=== PATIENT | female | born 1960 | race Caucasian/White ===

== ENCOUNTER 2017-02-19 19:46 | Emergency (ER) | payer MEDICARE, MEDICAID ==
[2017-02-19] MEDS ORDERED: Albuterol/Ipratropium NEB.SOL* Albuterol 2.5 MG/Ipratropium 0.5 MG 3 ML ONE (20:21)
[2017-02-19] MEDS ORDERED: methylPREDNISolone 125 MG* 2 ML VIAL ONE (20:22)
[2017-02-19] MEDS ORDERED: LORazepam INJ* 2 MG/ML 1 ML VIAL ONE (20:23)
[2017-02-19] MEDS ORDERED: Albuterol/Ipratropium NEB.SOL* Albuterol 2.5 MG/Ipratropium 0.5 MG 3 ML INH ONE (20:25)
[2017-02-19] MEDS ORDERED: LORazepam INJ* 2 MG/ML 1 ML VIAL IV PUSH ONE (20:25)
[2017-02-19] MEDS ORDERED: methylPREDNISolone 125 MG* 2 ML VIAL IV ONE (20:25)
[2017-02-19] MEDS ORDERED: NS 0.9% 1000 ML* 1,000 ML IV ONE (20:38)
[2017-02-19 20:43] LABS: Hematocrit 41 % (35-47); Hemoglobin 13.6 g/dl (12.0-16.0); Mean Corpuscular HGB Conc 33 g/dl (31-36); Mean Corpuscular Hemoglobin 28 pg (27-31); Mean Corpuscular Volume 84 fL (80-97); Mean Platelet Volume 9 um3 (7.4-10.4); Red Cell Distribution Width 15 % (10.5-15)
[2017-02-19 20:54] LABS: Albumin 4.3 g/dL (3.2-5.2); BUN/Creatinine Ratio 22.2 (8-20); Calcium 9.6 mg/dL (8.6-10.3); EGFR African American 83.3 (>60); EGFR Non-African American 64.8 (>60); Globulin 2.6 g/dL (2-4); Potassium 3.9 mmol/L (3.5-5.0); Total Bilirubin 0.5 mg/dL (0.2-1.0); Total Protein 6.9 g/dL (6.4-8.9)
--- NOTE | 2017-02-19 21:28 | RAD ---
INDICATION: Shortness of breath COMPARISON: Most recent comparison chest x-ray dated September 13, 2016 TECHNIQUE: Single AP portable view of the chest was obtained. FINDINGS: Image quality is compromised due to the relative inferiority of a portable chest x-ray. The heart and mediastinum exhibit normal size and contour. The lungs are grossly clear. There is no evidence of a large pleural effusion. Visualized bones are normal for the patient's age. IMPRESSION: No radiographic evidence for acute cardiopulmonary abnormality on this portable chest x-ray.
[2017-02-19] MEDS ORDERED: DOXYcycline CAP(*) 100 MG PO ONE (23:33)
--- NOTE | 2017-02-19 23:39 | ED ---
Judy Hodges Alok, scribed for Tish Frankel MD on 02/19/17 at 2041 . Respiratory - HPI Summary HPI Summary: 57F presents to the ED with difficulty breathing and dry heaving. Pt was reportedly smoked crack-cocaine earlier today between 1400 and 1700 and has not been able to expel her phlegm since. Pt has been dry heaving infrequently for months but not with this severity. Pt also notes back pain. Pt denies CP. Pt denes dysphagia. PMHx includes COPD and pt is on 2L O2 at home. Pt denies h/o stoke or STEMI. - History of Current Complaint Chief Complaint: EDShortnessOfBreath Stated Complaint: DIFF. BREATHING/NARCOTICS USE Time Seen by Provider: 02/19/17 19:56 Hx Obtained From: Patient Onset/Duration: Lasting Hours, Still Present Timing: Constant Initial Severity: Moderate Current Severity: Moderate Pain Intensity: 6 Character: Dyspnea at Rest Sputum Amount: None Aggravating Factor(s): Other - cocaine Alleviating Factor(s): Nothing Associated Signs and Symptoms: Wheezing, Dyspnea - Allergy/Home Medications Allergies/Adverse Reactions: Allergies Allergy/AdvReac Type Severity Reaction Status Date / Time Penicillins Allergy Severe SWELLING/IT Verified 06/14/16 14:23 ROSA MARIA PMH/Surg Hx/FS Hx/Imm Hx Endocrine/Hematology History: Reports: Hx Diabetes - type 2, Hx Thyroid Disease Cardiovascular History: Reports: Hx Auto Implanted Cardiovert Defib, Hx Hypercholesterolemia, Hx Hypertension - ON MEDICATION/ HIGH TRIGLYCERIDE, Other Cardiovascular Problems/Disorders - cholesterol control with me Denies: Hx Pacemaker/ICD Respiratory History: Reports: Hx Chronic Obstructive Pulmonary Disease (COPD), Hx Pneumonia, Hx Sleep Apnea - current CPAP user, Other Respiratory Problems/ Disorders - COPD recent visit to ER last week taken prednisone and antibiotis Denies: Hx Asthma GI History: Reports: Hx Gastroesophageal Reflux Disease Denies: Hx Ulcer History: Reports: Other Problems/Disorders - Dysuria Musculoskeletal History: Reports: Hx Arthritis - LOWER BACK, Other Musculoskeletal History - Bilateral carpel tunnel and left trigger thumb Denies: Hx Osteoporosis Sensory History: Reports: Hx Contacts or Glasses - Eyeglasses Denies: Hx Hearing Aid Opthamlomology History: Reports: Hx Contacts or Glasses - Eyeglasses Neurological History: Reports: Other Neuro Impairments/Disorders - DEPRESSION AND ANXIETY. PAIN CLINIC PT Psychiatric History: Reports: Hx Anxiety, Hx Depression, Hx Post Traumatic Stress Disorder, Hx Inpatient Treatment - drug and etoh rehab Denies: Hx Panic Disorder, Hx of Violent Episodes Against Others Comment Only: Hx Eating Disorder - unknown - Cancer History Hx Chemotherapy: No Hx Radiation Therapy: No - Surgical History Surgery Procedure, Year, and Place: 02/2012 LEFT WRIST CARPAL TUNNEL RELEASE, [facility]. 03/28/13 - Rt WRIST CARPAL TUNNEL RELEASE -. 06/16 LEFT TRIGGER THUMB RELEASE Hx Anesthesia Reactions: No Infectious Disease History: No Infectious Disease History: Reports: Hx Hepatitis - Hx of Hep C treated, not current Denies: Hx Human Immunodeficiency Virus (HIV), History Other Infectious Disease, Traveled Outside the [place] in Last 30 Days - Family History Known Family History: Positive: Cardiac Disease, Hypertension, Diabetes - Social History Lives: With Family Alcohol Use: None Hx Substance Use: Yes Substance Use Type: Reports: Cocaine - crack Substance Use Comment - Amount & Last Used: tramadol Hx Tobacco Use: No Smoking Status (MU): Former Smoker Type: Cigarettes Amount Used/How Often: 1.5 PPD Length of Time of Smoking/Using Tobacco: 33 YEARS Have You Smoked in the Last Year: No Review of Systems Negative: Fever Negative: Chest Pain Positive: Other - dyspnea All Other Systems Reviewed And Are Negative: Yes Physical Exam Triage Information Reviewed: Yes Vital Signs On Initial Exam: Initial Vitals Temp Pulse Resp BP Pulse Ox 98.3 F 93 23 124/87 93 02/19/17 19:55 02/19/17 19:55 02/19/17 19:55 02/19/17 19:55 02/19/17 19:55 Vital Signs Reviewed: Yes Appearance: Positive: Well-Appearing, No Pain Distress Skin: Positive: Warm, Skin Color Reflects Adequate Perfusion, Dry Eyes: Positive: EOMI, CALVIN ENT: Positive: Pharynx normal, TMs normal Neck: Positive: Supple, Nontender Respiratory/Lung Sounds: Positive: Clear to Auscultation, Breath Sounds Present , Stridor - expiratory. Negative: Rales, Rhonchi, Wheezes Cardiovascular: Positive: RRR, Other - no gallop. Negative: Murmur, Rub Abdomen Description: Positive: Nontender, Soft, Other: - no rebound. Negative: Distended, Guarding Bowel Sounds: Positive: Present Musculoskeletal: Positive: Strength/ROM Intact. Negative: Edema Left, Edema Right Neurological: Positive: Sensory/Motor Intact, Alert, Oriented to Person Place, Time, CN Intact II-III Psychiatric: Positive: Affect/Mood Appropriate Diagnostics - Vital Signs Vital Signs Temp Pulse Resp BP Pulse Ox 02/19/17 20:27 24 02/19/17 19:55 98.3 F 93 23 124/87 93 - Laboratory Lab Results: Lab Results 02/19/17 02/19/17 02/19/17 Range/Units 20:10 20:10 20:10 WBC 9.0 (3.5-10.8) 10^3/ul RBC 4.90 (4.0-5.4) 10^6/ul Hgb 13.6 (12.0-16.0) g/dl Hct 41 (35-47) % MCV 84 (80-97) fL MCH 28 (27-31) pg MCHC 33 (31-36) g/dl RDW 15 (10.5-15) % Plt Count 269 (150-450) 10^3/ul MPV 9 (7.4-10.4) um3 Neut % (Auto) 78.3 (38-83) % Lymph % (Auto) 13.3 L (25-47) % [place] % (Auto) 7.1 (1-9) % Eos % (Auto) 0.5 (0-6) % Baso % (Auto) 0.8 (0-2) % Absolute Neuts (auto) 7.0 (1.5-7.7) 10^3/ul Absolute Lymphs (auto) 1.2 (1.0-4.8) 10^3/ul Absolute Monos (auto) 0.6 (0-0.8) 10^3/ul Absolute Eos (auto) 0 (0-0.6) 10^3/ul Absolute Basos (auto) 0.1 (0-0.2) 10^3/ul Absolute Nucleated RBC 0 10^3/ul Nucleated RBC % 0 Sodium 135 (133-145) mmol/L Potassium 3.9 (3.5-5.0) mmol/L Chloride 105 (101-111) mmol/L Carbon Dioxide 21 L (22-32) mmol/L Anion Gap 9 (2-11) mmol/L BUN 20 (6-24) mg/dL Creatinine 0.90 (0.51-0.95) mg/dL Est GFR ( Amer) 83.3 (>60) Est GFR (Non-Af Amer) 64.8 (>60) BUN/Creatinine Ratio 22.2 H (8-20) Glucose 108 H (70-100) mg/dL Lactic Acid 0.8 (0.5-2.0) mmol/L Calcium 9.6 (8.6-10.3) mg/dL Total Bilirubin 0.50 (0.2-1.0) mg/dL AST 21 (13-39) U/L ALT 17 (7-52) U/L Alkaline Phosphatase 43 (34-104) U/L Troponin I 0.00 (<0.04) ng/mL Total Protein 6.9 (6.4-8.9) g/dL Albumin 4.3 (3.2-5.2) g/dL Globulin 2.6 (2-4) g/dL Albumin/Globulin Ratio 1.7 (1-3) Result Diagrams: 02/19/17 20:10 02/19/17 20:10 Lab Statement: Any lab studies that have been ordered have been reviewed, and results considered in the medical decision making process. - Radiology CXR Xray Interpretation: Positive (See Comments) - IMPRESSION: No radiographic evidence for acute cardiopulmonary abnormality on this portable chest x-ray. Radiology Interpretation Completed By: Radiologist - EKG 2244 Cardiac Rate: NL - 89 bpm EKG Rhythm: Sinus Rhythm Re-Evaluation - Re-Evaluation First Eval Re-Evaluation Time: 23:23 Change: Improved Comment: Pt denies anxiety. Disposition - Course Course Of Treatment: 57 yo female who has copd who reports having think mucus for a while that she often has trouble bringing up. Today she had a particulary bad day and used crack which made it more difficult for her to bring up the mucus. On exam she seemed to be very anxious with exp stridor/ trying to bring mucus up, she denied cp. She was given 1mg of ativan which relieved her symptoms. She does describe post nasal drip as well as thick sputum and so doxy and pred were ordered. Pt says she doesn't often use cocaine and feels she won't do it again because of today's issues - Diagnoses Provider Diagnoses: Sinusitis, Anxiety, Crack cocaine use, COPD exacerbation Discharge - Discharge Plan Condition: Stable Disposition: HOME Prescriptions: DOXYcycline CAP(*) [DOXYcycline 100MG CAP(*)] 100 mg PO BID #18 cap predniSONE TAB* [Deltasone TAB*] 50 mg PO DAILY #5 tab Referrals: Charlene Salgado MD [Primary Care Provider] - The documentation as recorded by the Judy peterson Alok accurately reflects the service I personally performed and the decisions made by me, Tish Frankel MD.
[2017-02-20 00:03] VITALS: BP 148/95
== END 2017-02-20 00:04 | disposition home or self-care (01) ==
LOC: ED 19:46
DX: J32.9 Chronic sinusitis, unspecified (principal); J44.1 Chronic obstructive pulmonary disease with (acute) exacerbation; R06.00 Dyspnea, unspecified; F41.9 Anxiety disorder, unspecified; F14.90 Cocaine use, unspecified, uncomplicated
CPT/HCPCS: 36415; 71010; 80053; 83605; 84484; 85025; 93005; 96374; 96375; 99284; A9270-GY; J2060; J2930

== ENCOUNTER 2017-05-22 14:40 | Emergency (ER) | payer MEDICARE, MEDICAID ==
[2017-05-22 14:46] VITALS: BP 138/87
== END 2017-05-22 16:13 | disposition left against medical advice (07) ==
LOC: ED 14:40
DX: R10.9 Unspecified abdominal pain (principal); Z53.21 Procedure and treatment not carried out due to patient leaving prior to being seen by health care provider
CPT/HCPCS: 99281

== ENCOUNTER 2017-08-24 15:41 | Emergency (ER) | payer MEDICARE, MEDICAID ==
--- OUTSIDE RECORDS SUMMARY | 2017-08-24 16:20 | XMS REPORT ---
:1960 External Reference #:[id number] [facility] Address [address] [address] Phone [phone] Care Team Providers Name Role Phone Charlene Salgado MD Care Team Information Tie Binder Unavailable Charlene Salgado MD Primary Care Physician Unavailable Payers Type Date Identification Numbers Payment Provider Subscriber Medicare Primary Policy Number: [id number] Medicare Viri Mello PayID: [id number] [address] [place] [address] Medigap Part B Policy Number: [id number] Medicaid Viri Mello Group Name: 1 1 [address] PayID: [id number] [place] [address] Commercial Effective: 2016 Policy Number: [id number] Rialtoboyd Mello Expires: 2017 PayID: [id number] [address] [place] [address] Commercial Effective: Policy Number: Total Care/Angel Mello [id number] [facility] Expires: 2016 Group Name: [id number] [address] [address] PayID: [id number] [place] [address] Commercial Effective: Policy Number: Total Care/Angel Mello [id number] [facility] Expires: 2011 PayID: [id number] [address] [address] [place] [address] Problems Date Description Provider Status Onset: 05/24/2011 Ex-smoker Dino Lew M.D.,FAC Active Onset: 05/24/2011 Chronic obstructive lung disease Dino Lew M.D., FACP Active Onset: 09/29/2011 Generalized anxiety disorder Nano Casanova M.D. Active Onset: 09/29/2011 Insomnia Nano Casanova M.D. Active Onset: 09/29/2011 Obstructive sleep apnea syndrome Nano Casanova M.D. Active Onset: 09/29/2011 Chronic hepatitis Nano Casanova M.D. Active Note: hepatitis C ( completed treatment 2011) Onset: 09/29/2011 Epidermoid cyst Nano Casanova M.D. Active Onset: 09/29/2011 Obesity Nano Casanova M.D. Active Onset: 03/16/2014 Obstructive sleep apnea of adult Charlene Salgado M.D. Active Onset: 10/01/2014 Chronic respiratory failure Susi Albarado MD Active Onset: 12/01/2014 Diverticular disease of colon Charlene Salgado M.D. Active Note: 2010 by colonscopy Onset: 12/01/2014 Family history of malignant melanoma Charlene Salgado M.D. Active Note: father PGF Onset: 06/17/2015 Ganglion of joint Kellie Pandya MD Active Onset: Gastroesophageal reflux disease without Active esophagitis Note: DR VYAS Onset: 12/02/2015 Impaired glucose tolerance Charlene Salgado M.D. Active Onset: 02/08/2016 Chest pain Susi Albarado MD Active Onset: 02/09/2016 Cholelithiasis without obstruction Charlene Salgado M.D. Active Onset: 03/04/2016 Lateral epicondylitis Kellie Pandya MD Active Onset: 04/13/2016 Fibromyalgia Charlene Salgado M.D. Active Onset: 04/28/2016 Encntr screen for malignant neoplasm Susi Albarado MD Active of respiratory organs Onset: 05/19/2016 Disorder of lung Susi Albarado MD Active Onset: 07/17/2016 Cocaine misuse Charlene Salgado M.D. Active Onset: 10/25/2016 Pain in limb Kellie Pandya MD Active Onset: 06/30/2014 Type 2 diabetes mellitus in obese Charlene Salgado M.D. Inactive Inactive: 12/02/2015 Onset: 09/29/2011 Gastroduodenitis Nano Casanova M.D. Resolved Resolved: 12/07/2014 Onset: 11/01/2011 Edema Enoc Andrade M.D. Resolved Resolved: 06/03/2015 Family History Date Family Member(s) Problem(s) Comments General Diabetes General Heart Disease General Cancer Father 73 Father due to CAD () - of complications of complex heart surgery Father due to Diabetes () Social History Type Date Description Comments Marital Status Lives With Lives With Son Occupation Private Aide working history department chair Cigarette Use Quit 9 Years Ago ETOH Use Denies alcohol use Smoking Patient is a former smoker quit age 43; 1.5 ppd; began age 12 Recreational Drug Use Current Drug User Daily Caffeine Consumes on average 2 sodas per day Exercise Type/Frequency Does not exercise General Hx Text homehealth care X 3 daily per week 2 children age 26,11 cig quit 7 yr 1.5 pk per day 34 yr etoh quit 10 yr AA quit marijuana crack cocaine for 18 yr quit 12 yrs ago completely rehab the [facility], [place] in 2000 Allergies, Adverse Reactions, Alerts Date Description Reaction Status Severity Comments 03/15/2011 Penicillins active 03/15/2011 Vicodin inactive Medications Medication Date Status Form Strength Qnty SIG Indications Ordering Provider Meloxicam 08/08 Active Tablets 7.5mg 60tab take one s tab twice Emilee, daily as M.D. needed for pain, avoid other nsaids Lidoderm 08/08 Active Patches 5% 30uni 1 apply M79.1 ts to Emilee, affected M.D. area 12 hours on, 12 hours off Symbicort 03/20 Active Aerosol 80-4.5mcg 30.6u 2 puff Susi /2016 /Act nits twice a MD Verena day Hydroxyzine HCL 07/06 Active Tablets 25mg 60tab 1-2 tab R21 s by mouth Naomi, every M.D. night as needed Albuterol Sulfate 03/25 Active Nebulizer (2.5mg/3M 75ml 2.5 mg/3 J44.9 L) 0.083% millilite deric Lou via DNP, RN, nebulizer CREDIT COORDINATOR-BC every 6 hours if needed for shortness of breath and wheezing. Proair HFA 03/04 Active Aerosol 108(90Bas 1unit 2 puffs e) s by mouth MD Verena mcg/Act every 4 hours as needed Atrovent HFA 04/01 Active Aerosol 17mcg/Act 12.9u 1 unit, nits inhl, MD Verena twice a day Oxygen 03/25 Active Misc 1unit please s use o2 at MD Verena 2l/min during exertion Freestyle [place] 01/02 Active Kit W/Device 1unit use daily R7. Charlene Lite s as Naomi directed M.D. Freestyle Lancets 01/02 Active Misc 100un use twice R7. its daily and Salgado, as needed M.D. Freestyle Test 01/02 Active Strips 100un test R711.02 its strips Salgado, use twice M.D. daily as directed Fish Oil 11/[address] 1000mg po [place] Salgado Fenofibrate 09/11 Active Tablets 160mg 60tab take 1 s tablet Salgado, once M.D. daily T.E.D. 08/10 Active Misc 2unit please Yari Anti-Embolism s fit Jesus Fang Knee N.P. Length Losartan 03/01 Active Tablets 50mg 90tab take 1 s tablet by Salgado, mouth M.D. once daily Multivitamins Active Capsules QS 1 capsule Unknown / moni;y Stool Softener Active Capsules 100mg 1 by Unknown /0000 mouth twice a day as needed Linzess Active Capsules 145mcg 30cap 1 tab by Charlene / s mouth Salgado, daily M.D. Quetiapine Active Tablets 50mg Unknown Fumarate / Quetiapine Active Tablets 200mg take 1 Unknown Fumarate 0000 tablet by mouth once daily Omeprazole Active Capsules DR 40mg 90cap take 1 Charlene s capsule Salgado, by mouth M.D. once daily Lyrica Active Capsules Unsure Unknown /0000 Azithromycin 05/26 Hx Tablets 250mg 6tabs two tabs J20.9 day one, Varn, N.P. - one daily 06/05 till Benzonatate 05/26 Hx Capsules 100mg 30cap one by J20.9 s mouth Varn, N.P. - three 06/09 times daily as needed for cough Prednisone 07/06 Hx Tablets 10mg QS take 2 tab daily Salgado, - x 2 days M.D. 09/15 then tab daily x 3 days and then 09/05 tab daily x 3 days Permethrin 07/06 Hx Cream 5% 1unit apply to s all body Salgado, - once/january M.D. 09/15 repeat in 1 week Tramadol HCL 05/25 Hx Tablets 50mg 60tab 1 by s mouth 4 Salgado, - times a M.D. 09/15 day needed Lidocaine Mick 04/27 Hx Ointment 5% 120gm use 2 gm M77.11 on Emilee, - affected M.D. 01/23 area daily as needed for pain, apply w/ swab Bacitracin-Neomyc 04/06 Hx Ointment 400-5-500 30gm apply S80.212A [place] in-Polymyxin 0 twice Emilee, - daily to M.D. 07/06 knee Lidocaine 04/06 Hx Patches 5% 60uni Apply 1 M77.11 ts or 2 Emilee, - patches M.D. 04/06 12 hours /2015 on and 12 hours off Serevent Diskus 03/18 Hx Aerosol 50mcg/Dos 120un 2 puff Susi e its twice a MD Verena - day (Pt 04/27 she is not taking this 04/06/16) Levaquin 03/04 Hx Tablets 500mg 10tab 1po qd s fir 10 d DArianne Dumont M.D.,FACP 03/14 Prednisone 03/04 Hx Tablets 10mg 45tab 5 tabs po s qd for 5 D. Louann, - days then M.D.,FACP 03/16 taper by 1 tab every 2 days until finished Prednisone 02/10 Hx Tablets 20mg QS 2 tab by J44.9 mouth Naomi, - every day M.D. 03/04 x2 then 1 tab daily for 2 days, 1/2 tab daily for 2 days Prednisone 02/07 Hx Tablets 50mg qd - 03/04 Levofloxacin 02/07 Hx Tablets 750mg once a day Naomi, - M.D. 03/04 Nabumetone 12/15 Hx Tablets 500mg 30tab take one M77.11 s capsule/t Emilee, - ablet by M.Cheyanne 04/06 twice daily as needed for pain, please stop other nsaids Nitrofurantoin 11/17 Hx Capsules 100mg 14cap [address] [facility] [place] /2015 s mouth Naomi, - twice a M.D. Erythromycin 08/03 Hx Ointment 5mg/GM 1unit 1/2 inch H10.011 Carl s to each BETH Clarke - eye 4 10/08 daily untill redness is gone. Naproxen 06/17 Hx Tablets 500mg 30tab 1 by M06.4 s mouth MD Mumtaz - twice a 12/15 day needed pain Foradil Aerolizer 04/01 Hx Capsules 12mcg 60cap 1 cap Susi s inhalatio MD Verena - n every 03/13 day pt states she is no longer using this 04/06/16 Accu-Check Yazmin 12/31 Hx Misc 100un 2-3 times Charlene Chem Strips /2014 its a day and Naomi, - as needed M.D. 01/02 dx 250.00 Accu-Check 12/31 Hx Device 1unit check 2-3 Charlene Glucose Monitor /2014 s times a Naomi, - day M.D. 12/31 Accu-Check Yazmin 12/31 Hx Misc 100un check bs Charlene Lancet Drums /2014 its 1-2 Salgado, - times a M.D. 01/02 day, 250.00 Accu-Chek Yazmin 12/31 Hx Device 1unit test s daily 1-2 Naomi, - /day dx M.D. 01/02 dm 250.00 Metformin HCL 12/01 Hx Tablets 500mg 90tab 1 by 250.00 s mouth Salgado, - every day M.D. 06/03 Foradil Aerolizer 11/24 Hx Capsules 12mcg 1caps 1 cap Susi inhalatio MD Arianne Albarado every Spiriva 11/24 Hx Capsules 18mcg 2caps 1 unit Susi Handihaler inhalatiMD Arianne Blake daily 08/03 Ventolin HFA 11/11 Hx Aerosol 108(90Bas 90day 1 unit Susi e) puff MD Verena - mcg/Act every 6 /24 hours needed Foradil Aerolizer 10/01 Hx Capsules 12mcg 1caps 1 cap 496 Susi inhalatiMD Arianne Blake every Spiriva 10/01 Hx Capsules 18mcg 2caps 1 unit 496 Susi Handihaler inhalatiMD Arianne Blake daily 11/24 Paroxetine HCL 09/05 Hx Tablets 10mg 30tab 1 tablet s po once Naomi, - daily at M.D. 09/16 Naproxen 08/15 Hx Tablets 500mg 30tab 1 tab by 784.0 s mouth Salgado, - every 12 M.D. with food prn Night Splint 06/10 Hx 1 r foot as 729.4 needed Salgado, - M.D. 09/16 [place] 11/20 Hx Tablets 5-325mg 40tab 1-2 by s mouth Moseley-You - every 4 ng, M.D. / hours needed pain Azithromycin 10/25 Hx Tablets 250mg 6tabs two tabs 461.9 Dawn /2014 day one, Varn, N.P. - one daily 11/04 till Fluticasone 10/25 Hx Suspension 50mcg/Act 16gm 2 sprays 461.9 each Varn, N.P. - nostril 11/08 daily needed Meclizine HCL 10/25 Hx Tablets 25mg 30tab 1 tablet 386.11 s every 8 Varn, N.P. - hours as 12/02 needed for vertigo Benzonatate 10/25 Hx Capsules 200mg 30cap one by 461.9 s mouth Varn, N.P. - three 11/08 times daily as needed for cough Tramadol HCL 07/24 Hx Tablets 50mg 120ta 1 po bid 722.52 bs as needed Arianne Salgado M.D. 07/24 Bactrim DS 07/15 Hx Tablets 800-160mg 20tab 1 po bid s for 10 Pradip-Kush - ciara pillai M.D. 07/24 Hydrocodone/Aceta 07/02 Hx Tablets 5-325mg 60tab 1-2 tab q Unknown min s 4-6 hrs - prn pain 07/24 Bactrim DS 04/08 Hx Tablets 800-160mg 10tab 1 po bid s for 10 Pradip-Kush - ciara pillai M.D. 06/10 Medrol Dosepak 04/06 Hx Tablets 4mg 1Pak take as directed Margie pillai M.D. 06/10 Gabapentin 04/06 Hx Capsules 300mg 60cap take 1 s tab qhs , Margie pillai M.D. 06/10 to 2 tabs /2012 if no improveme nt in three days Tramadol HCL 03/19 Hx Tablets 50mg 30tab 1 po q 4 s hr prn Pradip-Kush pillai M.D. 06/10 Stool Softener 02/01 Hx Capsules 100mg 60cap Take One 564.00 s Capsule Naomi - By Mouth M.DVonnie 04/25 Daily Oxygen 11/27 Hx Misc 1unit set pt up s with 2 L Lupe, - nc @ M.DVonnie 03/25 Vitamin D With 11/12 Hx Chewtabs 1000 Iu a Charlene day Arianne Salgado M.D. 01/05 Vitamin B Complex 11/12 Hx Capsules 1 po qd Arianne Salgado M.D. 01/05 Cefpodoxime 10/19 Hx Tablets 200mg 20tab 1 tab bid 486 Yari Proxetil s x 10 days Leoncio - N.PVonnie 11/12 Fenofibrate 09/06 Hx Tablets 145mg 90tab 1 po qd Arianne Dooley M.D. 09/11 Fenofibrate 08/21 Hx Tablets 145mg 90tab 1 po qd 272.2 Arianne Dooley M.D. 08/27 Prednisone 08/14 Hx Tablets 10mg 13tab take 3 692.9 s tab daily Arianne Salgado x 2 days M.D. 08/27 then tab daily x 3 days and then 1 tab daily until all taken Tricor 08/14 Hx Tablets 145mg 90tab 1 po qd 272.2 Arianne Dooley M.D. 08/21 Hydroxyzine HCL 08/14 Hx Tablets 25mg 10tab 1 tab by 692.9 s mouth Naomi, - every M.D. 09/11 night needed for itching Bacitracin 06/14 Hx Ointment 500Unit/G 3.500 opthalmic 373.2 Yari /2011 M gm ; apply Leoncio - to N.P. 06/29 eye every 3-4 hours Carisoprodol 06/11 Hx Tablets 250mg 60tab 1 tab po 724.2 Charlene /2012 s bid Arianne Hancock M.D. 06/10 Soma 06/07 Hx Tablets 250mg 60tab 1 tab po 724.2 Nano /2012 s bid Arianne James M.D. 06/11 Ibuprofen 06/07 Hx Tablets 600mg 45tab tid prn 724.2 Nano s Arianne Casanova M.D. 06/10 Niaspan 02/01 Hx Tablets ER 1500mg 90tab 1 qpm 272.9 s Arianne Casanova M.D. 02/01 Miralax 02/01 Hx Powder 3350NF 238gm 17 gm qd 564.00 mixed w/ Edilberto, - 8 oz M.DVonnie 11/12 water/jui ce prn Colace 02/01 Hx Capsules 100mg 60cap 1 po bid 564.00 Charlene /2012 s as needed Naomi, - for M.DVonnie 02/01 constipat ion Niaspan 02/01 Hx Tablets ER 750mg 90tab Take Two s Tablets Edilberto, - By Mouth M.DVonnie 09/11 In The Evening Azithromycin 12/21 Hx Tablets 250mg 6tabs 2 tabs po 466.0 Dino qd x1 D. Louann, - day, 1 M.D.,FACP 12/28 tab po qd x 4 days Victrelis 11/01 Hx Capsules 200mg 4 tablets tid Arianne Andrade M.D. 03/16 Furosemide 11/01 Hx Tablets 40mg 30tab po qam 782.3 Arianne Ferreira M.D. 06/07 Potassium 11/01 Hx Tablets ER 20Meq 30tab take 1 782.3 [place] Chloride s tab by Lupe, - mouth M.DVonnie 12/21 daily Effexor XR 09/29 Hx Caps ER 37.5mg 45cap 1 tab po 300.02 24HR s every day Edilberto, - for 7 M.D. 09/29 days 2 tabpo every day for 21 days Ambien 09/29 Hx Tablets 5mg 30tab 09/05 -1 780.52 s tab po at Edilberto, - bedtime M.D. 09/29 Nicoderm CQ 09/29 Hx Patches 21mg/24HR 30uni 1 patch V15.82 24HR ts to chest Arianne Casanova M.D. 09/29 every Pantoprazole 09/[address] 40mg 90tab 1 po qd 535.50 Nano Arianne Villegas M.D. 09/29 Diovan 07/05 Hx Tablets 160mg 30tab 1 po qd 401.9 Arianne Villegas M.D. 03/16 Nexium 06/[address] 40mg 30cap 1 po qd Arianne Villegas M.D. 12/21 Seroquel XR 06/20 Hx Tablets ER 150mg 24HR Arianne Casanova M.D. 11/01 Doxycycline 05/[address] 100mg 14cap bid po 491.21 Dino cl Part s Arianne Shields M.D.,[facility] 06/20 Prednisone 05/24 Hx Tablets 10mg 50tab 6 tabs qd 491.21 Dino s for 2 Arianne Shields M.D.,[facility] 06/20 reduce by 1 tab every 2 days until finished [place] 05/24 Hx Aerosol 80mcg/Act 1mon 1 puff 491.21 inhaled Cheyanne Lew, - bid River,[facility] 12/21 Fexofenadine HCL 03/31 Hx Tablets 180mg 30tab 1 po qd 477.8 Arianne Villegas M.D. 06/20 Spiriva 03/15 Hx Capsules 18mcg 30cap 2 inh of 496 Dino Handihaler s 1 capsule Cheyanne Lew, - once per M.D.,FACP Nitroglycerin 03/15 Hx Patches 0.4mg/HR 1bott 1 under 786.50 24HR Edilberto carey - january River 04/14 repeat Nystatin Ointment 03/15 Hx [id number] 60gm apply to 112.9 area 2 Arianne Casanova times per M.DVonnie Lyrica Hx Capsules 100mg 90cap 1 po tid Unknown / s - 09/[address] 60mg 30cap 2 po qd Unknown / Part s Dr. Arianne Barahona 09/15 Ranitidine HCL Hx Capsules 150mg 60cap 1 po bid Unknown / s - 06/[address] 20mg 30cap 1 po qd Unknown / s - 06/20 Niaspan Hx Tablets ER 1000mg 90tab 1 qpm Nano / s Arianne Casanova M.D. 02/01 Aspirin Hx Tablets 325mg 1 po qd - 11/12 Ventolin HFA Hx Aerosol 108(90Bas 1mont 2 puffs Dino e) mcg/ac h po qid Cheyanne Lew, - colby M.Cheyanne,FACP 11/11 Albuterol Inhaler Hx 1unit 2 puffs s po qid Arianne Casanova M.D. 12/21 Tramadol HCL Hx Tablets 50mg 120ta qid prn Unknown / bs - 06/07 Flexeril Hx Tablets 10mg 30tab 1 po tid Unknown s prn - 06/10 Diclofenac Sodium Hx Tablets [address] 75mg 60tab 1 po bid Unknown / s - 03/16 Percocet Hx Tablets 2.5-325mg 90tab 1-2 po Unknown / s q6h prn - pain 12/21 Fish Oil Hx Capsules 300mg 1 po qd Unknown / - 12/21 Vitamin C Hx Tablets 1000mg 30tab 1 po qd Unknown / s - 12/21 Intrafaron Hx 50mcg 1 Unknown / Injection - Sub Q 06/07 Lyrica Hx Capsules 100mg 90cap 1 po bid Unknown / s Dr. Arianne Guerrero Rebetol Hx Capsules 200mg 3 po bid Unknown / - 06/07 Doxycycline Hx Capsules 100mg 20cap 1 po qd Unknown Hyclate /0000 s - 12/21 Mometasone Hx Cream 0.1% 45gm apply bid Unknown Furoate /0000 - 06/14 Niaspan Hx Tablets ER 750mg 180ta take two Nano /0000 bs tablets Casanova, - by mouth M.DVonnie 10/19 every Foradil Aerolizer Hx Capsules 12mcg 180ca 1 inhaled Unknown /0000 ps bid - 10/01 Buspirone HCL Hx Tablets 30mg Bezirgania /0000 Eric johnson - MD 11/17 Lyrica Hx Capsules 150mg 90cap 1 by Unknown /0000 s mouth - twice a Morphine Sulfate Hx Tablets 15mg 1 by Unknown /0000 mouth - twice a Black Cohosh Hx Capsules 40mg Unknown /0000 - 04/06 [employer] Hx Tablets Unknown /0000 - 04/06 Fiber Complete Hx Tablets 1 tab bid Unknown /0000 - 08/08 Chlordiazepoxide Hx Capsules 10mg Take 1 Unknown HCL /0000 Cap 3 - Times A Aripiprazole Hx Tablets 5mg take 2 Unknown /0000 tablets - by mouth 01/23 at bedtime Medications Administered in Office Medication Date Status Form Strength Qnty SIG Indications Ordering Provider Depomedrol 40MG 10/26/ Administered Injection Deanna 2016 [place] Alvarado Triamcinolone 03/04/ Administered Injection Zaneb (Kenalog) 2015 MD Mumtaz Celestone 3 mg 05/06/ Administered Injection Desire and 3mg 2013 Gregg russo M.D. Celestone 3 mg 01/13/ Administered Injection Stephania and 3mg 2013 CARLA Rangel-Kilo PPD 11/19/ Administered Injection Nurse Visit 2013 C Celestone 3 mg 05/29/ Administered Injection Desire and 3mg 2012 Gregg russo M.D. Celestone 3 mg 05/29/ Administered Injection Desire and 3mg 2012 Gregg russo M.D. Celestone 3 mg 05/08/ Administered Injection Desire and 3mg 2012 Gregg russo M.D. Celestone 3 mg 05/08/ Administered Injection Desire and 3mg 2012 Gregg russo M.D. Celestone 3 mg 12/26/ Administered Injection Desire and 3mg 2012 Gregg russo M.D. Celestone 3 mg 12/26/ Administered Injection Desire and 3mg 2012 Gregg russo M.D. PPD 06/29/ Administered Injection Nano Casanova M.D. Immunizations CPT Code Status Date Vaccine Lot # [id number] Given 05/25/2016 Influenza Virus Vaccine, Quadrivalent, Split, [id number] Preservative Free 05381 Given 06/03/2015 Influenza Virus Vaccine, Quadrivalent, Split, [id number] Preservative Free 31965 Given 06/03/2015 Pneumococcal Conjugate Vaccine 13 Valent For [id number] Intramuscular Use 06416 Given 06/10/2014 Influenza Virus Vaccine, Quadrivalent, Split, [id number] Preservative Free 80015 Given 06/10/2013 Flu Vaccine Split Virus Preservative Free For [id number] Indiv 3Yr Older 71814 Given 09/11/2012 Tdap - Tetanus/Diptheria/Acellular Pertussis [id number] Given 06/07/2012 Fluzone Vaccine [id number] 03277 Given 06/07/2012 Pneumonia Vaccine [id number] 56046 Given 05/24/2011 Influenza Virus 3Yrs & Over [id number] Vital Signs Date Vital Result Comment 08/08/2017 Height 63 inches 5'3" Weight 179.00 lb Heart Rate 80 /min BP Systolic Sitting 130 mmHg BP Diastolic Sitting 76 mmHg Respiratory Rate 14 /min Pain Level 9 BMI (Body Mass Index) 31.7 kg/m2 05/26/2017 Height 63 inches 5'3" Weight 171.00 lb Heart Rate 81 /min Body Temperature 98.1 F O2 % BldC Oximetry 93 % BMI (Body Mass Index) 30.3 kg/m2 04/04/2017 Height 63 inches 5'3" Weight 170.00 lb Heart Rate 84 /min BP Systolic Sitting 122 mmHg BP Diastolic Sitting 88 mmHg Respiratory Rate 14 /min O2 % BldC Oximetry 95 % BMI (Body Mass Index) 30.1 kg/m2 01/24/2017 Height 63 inches 5'3" Weight 171.00 lb Heart Rate 85 /min BP Systolic Sitting 142 mmHg BP Diastolic Sitting 84 mmHg Respiratory Rate 18 /min O2 % BldC Oximetry 95 % BMI (Body Mass Index) 30.3 kg/m2 10/26/2016 Height 63 inches 5'3" Weight 176.00 lb Heart Rate 80 /min BP Systolic 124 mmHg BP Diastolic 60 mmHg Respiratory Rate 24 /min Pain Level 5 BMI (Body Mass Index) 31.2 kg/m2 10/25/2016 Height 63 inches 5'3" Weight 176.00 lb Heart Rate 96 /min BP Systolic 103 mmHg BP Diastolic 64 mmHg Pain Level 5 BMI (Body Mass Index) 31.2 kg/m2 09/15/2016 Weight 182.00 lb Heart Rate 72 /min BP Systolic Sitting 122 mmHg BP Diastolic Sitting 94 mmHg Body Temperature 97.5 F O2 % BldC Oximetry 96 % 07/06/2016 Weight 195.00 lb Heart Rate 86 /min BP Systolic Sitting 132 mmHg BP Diastolic Sitting 70 mmHg Body Temperature 98.0 F 06/20/2016 Height 63 inches 5'3" Weight 200.00 lb Heart Rate 94 /min BP Systolic Sitting 130 mmHg BP Diastolic Sitting 80 mmHg Body Temperature 97.5 F O2 % BldC Oximetry 91 % BMI (Body Mass Index) 35.4 kg/m2 06/03/2016 Height 63 inches 5'3" Weight 209.00 lb Heart Rate 60 /min Respiratory Rate 16 /min Pain Level 6 BMI (Body Mass Index) 37.0 kg/m2 05/25/2016 Height 63 inches 5'3" Weight 209.50 lb Heart Rate 86 /min BP Systolic Sitting 120 mmHg BP Diastolic Sitting 80 mmHg O2 % BldC Oximetry 94 % BMI (Body Mass Index) 37.1 kg/m2 05/19/2016 Height 63 inches 5'3" Weight 208.00 lb Heart Rate 98 /min BP Systolic Sitting 134 mmHg BP Diastolic Sitting 83 mmHg Respiratory Rate 20 /min O2 % BldC Oximetry 94 % BMI (Body Mass Index) 36.8 kg/m2 04/28/2016 Height 63 inches 5'3" Weight 208.00 lb Heart Rate 78 /min BP Systolic 128 mmHg BP Diastolic 88 mmHg Respiratory Rate 14 /min O2 % BldC Oximetry 98 % BMI (Body Mass Index) 36.8 kg/m2 04/13/2016 Weight 209.00 lb Heart Rate 88 /min BP Systolic Sitting 132 mmHg BP Diastolic Sitting 84 mmHg O2 % BldC Oximetry 94 % 04/06/2016 Height 63.5 inches 5'3.50" Weight 203.00 lb Heart Rate 84 /min BP Systolic Sitting 120 mmHg BP Diastolic Sitting 74 mmHg Body Temperature 97.5 F Pain Level 3 BMI (Body Mass Index) 35.4 kg/m2 03/04/2016 Weight 209.00 lb Heart Rate 98 /min BP Systolic Sitting 134 mmHg BP Diastolic Sitting 81 mmHg Body Temperature 96.7 F O2 % BldC Oximetry 96 % 02/11/2016 Weight 205.00 lb Heart Rate 103 /min BP Systolic Sitting 162 mmHg BP Diastolic Sitting 80 mmHg Respiratory Rate 16 /min O2 % BldC Oximetry 93 % 02/08/2016 Height 64 inches 5'4" Weight 207.00 lb Heart Rate 83 /min BP Systolic 110 mmHg BP Diastolic 74 mmHg Respiratory Rate 16 /min O2 % BldC Oximetry 92 % BMI (Body Mass Index) 35.5 kg/m2 01/06/2016 Height 64 inches 5'4" Weight 207.00 lb Heart Rate 80 /min BP Systolic Sitting 112 mmHg BP Diastolic Sitting 70 mmHg Body Temperature 97.5 F Pain Level 5 BMI (Body Mass Index) 35.5 kg/m2 12/16/2015 Height 64 inches 5'4" Weight 207.00 lb Heart Rate 82 /min BP Systolic Sitting 110 mmHg BP Diastolic Sitting 68 mmHg Pain Level 5 BMI (Body Mass Index) 35.5 kg/m2 12/02/2015 Weight 203.00 lb Heart Rate 76 /min BP Systolic Sitting 124 mmHg BP Diastolic Sitting 60 mmHg Respiratory Rate 15 /min Body Temperature 98.2 F O2 % BldC Oximetry 93 % 11/26/2015 Height 63 inches 5'3" Weight 208.00 lb Pain Level 8 BMI (Body Mass Index) 36.8 kg/m2 11/18/2015 Weight 203.00 lb Heart Rate 84 /min BP Systolic Sitting 118 mmHg BP Diastolic Sitting 66 mmHg Body Temperature 97.7 F O2 % BldC Oximetry 95 % 10/09/2015 Height 63 inches 5'3" Weight 208.00 lb Heart Rate 78 /min BP Systolic 128 mmHg BP Diastolic 76 mmHg Respiratory Rate 14 /min O2 % BldC Oximetry 97 % BMI (Body Mass Index) 36.8 kg/m2 08/03/2015 Weight 206.00 lb Heart Rate 86 /min BP Systolic Sitting 132 mmHg BP Diastolic Sitting 86 mmHg Body Temperature 97.7 F O2 % BldC Oximetry 97 % 08/03/2015 Height 63 inches 5'3" 06/17/2015 Height 63 inches 5'3" Weight 208.00 lb Heart Rate 88 /min BP Systolic Sitting 121 mmHg BP Diastolic Sitting 81 mmHg Respiratory Rate 22 /min Pain Level 4 up to 9 BMI (Body Mass Index) 36.8 kg/m2 06/03/2015 Weight 208.00 lb Heart Rate 95 /min BP Systolic Sitting 130 mmHg BP Diastolic Sitting 82 mmHg Body Temperature 96.3 F 03/25/2015 Height 63 inches 5'3" Weight 216.00 lb Heart Rate 66 /min BP Systolic 128 mmHg BP Diastolic 80 mmHg Respiratory Rate 16 /min O2 % BldC Oximetry 93 % BMI (Body Mass Index) 38.3 kg/m2 12/01/2014 Height 63 inches 5'3" Weight 208.75 lb Heart Rate 92 /min BP Systolic Sitting 126 mmHg BP Diastolic Sitting 78 mmHg Respiratory Rate 18 /min Body Temperature 96.4 F Pain Level 8 O2 % BldC Oximetry 93 % room air BMI (Body Mass Index) 37.0 kg/m2 10/01/2014 Heart Rate 91 /min BP Systolic Sitting 134 mmHg BP Diastolic Sitting 78 mmHg Respiratory Rate 20 /min O2 % BldC Oximetry 97 % 09/16/2014 Weight 207.50 lb Heart Rate 87 /min BP Systolic Sitting 118 mmHg BP Diastolic Sitting 74 mmHg 08/15/2014 Weight 205.50 lb Heart Rate 96 /min BP Systolic Sitting 139 mmHg BP Diastolic Sitting 89 mmHg Body Temperature 97.0 F O2 % BldC Oximetry 95 % 06/30/2014 Height 63 inches 5'3" Weight 211.50 lb Heart Rate 82 /min BP Systolic Standing 128 mmHg BP Diastolic Standing 82 mmHg Body Temperature 97.7 F O2 % BldC Oximetry 96 % BMI (Body Mass Index) 37.5 kg/m2 06/25/2014 Height 63 inches 5'3" Weight 208.00 lb Heart Rate 68 /min BP Systolic Sitting 126 mmHg left arm, large cuff BP Diastolic Sitting 86 mmHg left arm, large cuff Respiratory Rate 18 /min Body Temperature 98.1 F Temporal O2 % BldC Oximetry 96 % Room air BMI (Body Mass Index) 36.8 kg/m2 Neck Circumference in inches 16 06/10/2014 Height 63 inches 5'3" Weight 207.00 lb Heart Rate 83 /min BP Systolic Sitting 132 mmHg BP Diastolic Sitting 82 mmHg O2 % BldC Oximetry 94 % BMI (Body Mass Index) 36.7 kg/m2 05/06/2014 Height 63 inches 5'3" Weight 200.00 lb Heart Rate 83 /min BP Systolic 132 mmHg BP Diastolic 82 mmHg BMI (Body Mass Index) 35.4 kg/m2 04/25/2014 Weight 205.25 lb Heart Rate 116 /min BP Systolic Sitting 126 mmHg BP Diastolic Sitting 70 mmHg Body Temperature 98.8 F 03/31/2014 Height 63 inches 5'3" Heart Rate 81 /min BP Systolic 99 mmHg BP Diastolic 76 mmHg 02/11/2014 Height 63 inches 5'3" Heart Rate 84 /min BP Systolic 132 mmHg BP Diastolic 80 mmHg 01/13/2014 Height 63 inches 5'3" Heart Rate 90 /min BP Systolic 131 mmHg BP Diastolic 80 mmHg 12/18/2013 Height 63 inches 5'3" Weight 200.00 lb Heart Rate 70 /min BMI (Body Mass Index) 35.4 kg/m2 12/02/2013 Height 64 inches 5'4" Weight 200.00 lb Heart Rate 74 /min BP Systolic 124 mmHg BP Diastolic 80 mmHg BMI (Body Mass Index) 34.3 kg/m2 11/27/2013 Height 64 inches 5'4" Weight 200.00 lb Heart Rate 85 /min BP Systolic 134 mmHg BP Diastolic 81 mmHg BMI (Body Mass Index) 34.3 kg/m2 11/13/2013 Height 63 inches 5'3" Heart Rate 94 /min BP Systolic 125 mmHg BP Diastolic 82 mmHg 10/30/2013 Height 63 inches 5'3" Heart Rate 96 /min BP Systolic 119 mmHg BP Diastolic 90 mmHg 10/25/2013 Weight 203.50 lb Heart Rate 72 /min BP Systolic 136 mmHg BP Diastolic 76 mmHg Respiratory Rate 18 /min Body Temperature 98.2 F O2 % BldC Oximetry 94 % 10/16/2013 Weight 200.00 lb Heart Rate 88 /min BP Systolic Sitting 140 mmHg BP Diastolic Sitting 86 mmHg Body Temperature 98.8 F O2 % BldC Oximetry 97 % 09/26/2013 Height 63.25 inches 5'3.25" Weight 203.00 lb Heart Rate 88 /min BP Systolic Sitting 112 mmHg BP Diastolic Sitting 76 mmHg Body Temperature 97.0 F BMI (Body Mass Index) 35.7 kg/m2 08/05/2013 Height 63.25 inches 5'3.25" Weight 203.00 lb Heart Rate 97 /min BP Systolic Sitting 118 mmHg BP Diastolic Sitting 68 mmHg Body Temperature 97.2 F BMI (Body Mass Index) 35.7 kg/m2 07/24/2013 Height 63 inches 5'3" Weight 202.75 lb Heart Rate 93 /min BP Systolic Sitting 130 mmHg BP Diastolic Sitting 82 mmHg BMI (Body Mass Index) 35.9 kg/m2 06/27/2013 Height 63 inches 5'3" Weight 204.00 lb BP Systolic 136 mmHg BP Diastolic 78 mmHg Pain Level 7 back, left hip and butt BMI (Body Mass Index) 36.1 kg/m2 06/24/2013 Weight 202.00 lb Heart Rate 98 /min BP Systolic Sitting 124 mmHg BP Diastolic Sitting 80 mmHg 06/10/2013 Weight 200.00 lb Heart Rate 98 /min BP Systolic Sitting 120 mmHg BP Diastolic Sitting 82 mmHg O2 % BldC Oximetry 99 % 12/19/2012 Weight 193.00 lb Heart Rate 82 /min BP Systolic Sitting 110 mmHg BP Diastolic Sitting 70 mmHg O2 % BldC Oximetry 98. % 11/12/2012 Height 63.5 inches 5'3.50" Weight 190.00 lb Heart Rate 88 /min BP Systolic Sitting 122 mmHg BP Diastolic Sitting 78 mmHg BMI (Body Mass Index) 33.1 kg/m2 10/19/2012 Height 63.5 inches 5'3.50" Weight 185.00 lb Heart Rate 88 /min BP Systolic Sitting 142 mmHg BP Diastolic Sitting 78 mmHg Body Temperature 99.3 F BMI (Body Mass Index) 32.3 kg/m2 09/11/2012 Height 63.5 inches 5'3.50" Weight 181.00 lb Heart Rate 99 /min BP Systolic Sitting 140 mmHg BP Diastolic Sitting 88 mmHg O2 % BldC Oximetry 95 % BMI (Body Mass Index) 31.6 kg/m2 08/27/2012 Height 63.5 inches 5'3.50" Weight 179.00 lb Heart Rate 54 /min BP Systolic Sitting 122 mmHg BP Diastolic Sitting 74 mmHg Respiratory Rate 20 /min Body Temperature 97.8 F O2 % BldC Oximetry 96 % BMI (Body Mass Index) 31.2 kg/m2 08/14/2012 Height 63.5 inches 5'3.50" Weight 182.00 lb Heart Rate 60 /min BP Systolic Sitting 116 mmHg BP Diastolic Sitting 82 mmHg BMI (Body Mass Index) 31.7 kg/m2 08/07/2012 Height 63.5 inches 5'3.50" Weight 181.00 lb Heart Rate 100 /min BP Systolic Sitting 128 mmHg BP Diastolic Sitting 82 mmHg BMI (Body Mass Index) 31.6 kg/m2 06/29/2012 Height 63.5 inches 5'3.50" Weight 171.00 lb Heart Rate 85 /min BP Systolic Sitting 128 mmHg BP Diastolic Sitting 78 mmHg BMI (Body Mass Index) 29.8 kg/m2 06/19/2012 Height 63.5 inches 5'3.50" Weight 165.00 lb Heart Rate 92 /min BP Systolic Sitting 134 mmHg BP Diastolic Sitting 84 mmHg BMI (Body Mass Index) 28.8 kg/m2 06/14/2012 Height 63.5 inches 5'3.50" Weight 167.00 lb Heart Rate 100 /min BP Systolic Sitting 150 mmHg BP Diastolic Sitting 100 mmHg BMI (Body Mass Index) 29.1 kg/m2 06/07/2012 Height 63.5 inches 5'3.50" Weight 165.00 lb Heart Rate 84 /min BP Systolic Sitting 120 mmHg BP Diastolic Sitting 68 mmHg BMI (Body Mass Index) 28.8 kg/m2 03/16/2012 Height 63.5 inches 5'3.50" Weight 163.00 lb Heart Rate 76 /min BP Systolic Sitting 120 mmHg BP Diastolic Sitting 80 mmHg BMI (Body Mass Index) 28.4 kg/m2 02/02/2012 Height 63.5 inches 5'3.50" Weight 165.00 lb Heart Rate 72 /min BP Systolic Sitting 138 mmHg l BP Diastolic Sitting 74 mmHg l BMI (Body Mass Index) 28.8 kg/m2 12/29/2011 Height 63.5 inches 5'3.50" Weight 173.00 lb Heart Rate 80 /min BP Systolic 124 mmHg BP Diastolic 83 mmHg BP Systolic Sitting 134 mmHg BP Diastolic Sitting 90 mmHg BMI (Body Mass Index) 30.2 kg/m2 12/22/2011 Height 63.5 inches 5'3.50" Weight 173.00 lb Heart Rate 100 /min BP Systolic Sitting 128 mmHg BP Diastolic Sitting 84 mmHg Body Temperature 98.6 F BMI (Body Mass Index) 30.2 kg/m2 11/04/2011 Height 64 inches 5'4" Weight 187.00 lb Heart Rate 88 /min BP Systolic Sitting 122 mmHg BP Diastolic Sitting 60 mmHg BMI (Body Mass Index) 32.1 kg/m2 11/01/2011 Height 64 inches 5'4" Weight 190.00 lb Heart Rate 112 /min BP Systolic Sitting 160 mmHg BP Diastolic Sitting 88 mmHg BMI (Body Mass Index) 32.6 kg/m2 09/29/2011 Height 64 inches 5'4" Weight 183.00 lb Heart Rate 72 /min BP Systolic Sitting 108 mmHg L BP Diastolic Sitting 70 mmHg L BMI (Body Mass Index) 31.4 kg/m2 08/03/2011 Height 64 inches 5'4" Heart Rate 102 /min BP Systolic Sitting 110 mmHg BP Diastolic Sitting 75 mmHg 07/05/2011 Height 64 inches 5'4" Weight 199.50 lb Heart Rate 88 /min BP Systolic Sitting 134 mmHg BP Diastolic Sitting 98 mmHg BMI (Body Mass Index) 34.2 kg/m2 06/20/2011 Height 64 inches 5'4" Weight 202.50 lb Heart Rate 96 /min BP Systolic Sitting 166 mmHg BP Diastolic Sitting 102 mmHg BMI (Body Mass Index) 34.8 kg/m2 05/24/2011 Weight 198.00 lb Heart Rate 88 /min BP Systolic Sitting 142 mmHg BP Diastolic Sitting 96 mmHg Body Temperature 98.2 F lt ear O2 % BldC Oximetry 95 % room air 03/31/2011 Weight 195.00 lb Heart Rate 68 /min BP Systolic Sitting 148 mmHg BP Diastolic Sitting 90 mmHg 03/15/2011 Height 64 inches 5'4" Weight 195.00 lb Heart Rate 64 /min BP Systolic Sitting 132 mmHg BP Diastolic Sitting 82 mmHg BMI (Body Mass Index) 33.5 kg/m2 Results Test Date Test Result H/L Range Note CBC Auto Diff 02/19/2017 White Blood Count 9.0 10^3/uL 3.5-10.8 Red Blood Count 4.90 10^6/uL 4.0-5.4 Hemoglobin 13.6 g/dL 12.0-16.0 Hematocrit 41 % 35-47 Mean Corpuscular Volume 84 fL 80-97 Mean Corpuscular Hemoglobin 28 pg 27-31 Mean Corpuscular HGB Conc 33 g/dL 31-36 Red Cell Distribution Width 15 % 10.5-15 Platelet Count 269 10^3/uL 150-450 Mean Platelet Volume 9 um3 7.4-10.4 Abs Neutrophils 7.0 10^3/uL 1.5-7.7 Abs Lymphocytes 1.2 10^3/uL 1.0-4.8 Abs Monocytes 0.6 10^3/uL 0-0.8 Abs Eosinophils 0 10^3/uL 0-0.6 Abs Basophils 0.1 10^3/uL 0-0.2 Abs Nucleated RBC 0 10^3/uL Granulocyte % 78.3 % 38-83 Lymphocyte % 13.3 % Low 25-47 Monocyte % 7.1 % 1-9 Eosinophil % 0.5 % 0-6 Basophil % 0.8 % 0-2 Nucleated Red Blood Cells % 0 Laboratory test finding 02/19/2017 Lactic Acid 0.8 mmol/L 0.5-2.0 1 Comp Metabolic Panel 02/19/2017 Sodium 135 mmol/L 133-145 Potassium 3.9 mmol/L 3.5-5.0 Chloride 105 mmol/L 101-111 Co2 Carbon Dioxide 21 mmol/L Low 22-32 Anion Gap 9 mmol/L 2-11 Glucose 108 mg/dL High 70-100 Blood Urea Nitrogen 20 mg/dL 6-24 Creatinine 0.90 mg/dL 0.51-0.95 BUN/Creatinine Ratio 22.2 High 8-20 Calcium 9.6 mg/dL 8.6-10.3 Total Protein 6.9 g/dL 6.4-8.9 Albumin 4.3 g/dL 3.2-5.2 Globulin 2.6 g/dL 2-4 Albumin/Globulin Ratio 1.7 1-3 Total Bilirubin 0.50 mg/dL 0.2-1.0 Alkaline Phosphatase 43 U/L 34-104 Alt 17 U/L 7-52 Ast 21 U/L 13-39 Egfr Non- 64.8 >60 Egfr 83.3 >60 2 Laboratory test finding 02/19/2017 Troponin-I (TnI) 0.00 ng/mL <0.04 Drug Abuse 20 Urine 09/15/2016 Urine Amphetamine Negative ng/mL 3, 4 Urine Barbiturates Negative ng/mL 3, 5 Urine Benzodiazepines Negative ng/mL 3, 6 Urine Cocaine Presumptive Posi <SEE NOTE> 3, 7 ng/mL Urine Phencyclidine Negative ng/mL Cutoff: 25 3 Urine Tetrahydrocannabinol Negative ng/mL Cutoff: 50 3, 8 Creatinine 93.0 mg/dL 3 Specific Phillips 1.007 3 pH 7.1 3 Oxidants Negative 3, 9 Adulterants Comment Normal 3 Codeine, Ur Not Detected ng/mL Cutoff: 25 3, 10 Ujkmzua-5-whxd-glucuronide, Ur Not Detected ng/mL 3, 11 Morphine, Ur Not Detected ng/mL Cutoff: 25 3, 12 Konbapgs-5-arji-glucuronide, U Not Detected ng/mL 3, 13 6-monoacetylmorphine, Ur Not Detected ng/mL Cutoff: 25 3, 14 Hydrocodone, Ur Not Detected ng/mL Cutoff: 25 3, 15 Norhydrocodone, Ur Not Detected ng/mL Cutoff: 25 3, 16 Dihydrocodeine, Ur Not Detected ng/mL Cutoff: 25 3, 17 Hydromorphone, Ur Not Detected ng/mL Cutoff: 25 3, 18 Gqqtgvmeapkxu5gwsyntlwmzwiimp Not Detected ng/mL 3, 19 Oxycodone, Ur Not Detected ng/mL Cutoff: 25 3, 20 Noroxycodone, Ur Not Detected ng/mL Cutoff: 25 3, 21 Oxymorphone, Ur Not Detected ng/mL Cutoff: 25 3, 22 Bacmthpcgal-5-xzbv-glucuronide Not Detected ng/mL 3, 23 Noroxymorphone, Ur Not Detected ng/mL Cutoff: 25 3, 24 Fentanyl, Ur Not Detected ng/mL Cutoff: 2 3, 25 Norfentanyl, Ur Not Detected ng/mL Cutoff: 2 3, 26 Meperidine, Ur Not Detected ng/mL Cutoff: 25 3, 27 Normeperidine, Ur Not Detected ng/mL Cutoff: 25 3, 28 Naloxone, Ur Not Detected ng/mL Cutoff: 25 3, 29 Njpzoyuz-7-fery-glucuronide, U Not Detected ng/mL 3, 30 Methadone, Ur Not Detected ng/mL Cutoff: 25 3, 31 Eddp, Ur Not Detected ng/mL Cutoff: 25 3, 32 Propoxyphene, Ur Not Detected ng/mL Cutoff: 25 3, 33 Norpropoxyphene, Ur Not Detected ng/mL Cutoff: 25 3, 34 Tramadol, Ur Not Detected ng/mL Cutoff: 25 3, 35 O-desmethyltramadol, Ur Not Detected ng/mL Cutoff: 25 3, 36 Tapentadol, Ur Not Detected ng/mL Cutoff: 25 3, 37 N-desmethyltapentadol, Ur Not Detected ng/mL Cutoff: 50 3, 38 Pfauwjjunw-sodf-mwemdcvsuix, U Not Detected ng/mL 3, 39 Buprenorphine, Ur Not Detected ng/mL Cutoff: 5 3, 40 Norbuprenorphine, Ur Not Detected ng/mL Cutoff: 5 3, 41 Norbuprenorphine glucuronide Not Detected ng/mL Cutoff: 20 3, 42 Opioid Interpretation See Comment 3, 43 Urine Cocaine 09/15/2016 Urine Cocaine Negative ng/mL Cutoff: 50 3 Confirmation Confirm (GC/MS) Ur Benzoylecgonine Confirm 268 ng/mL Cutoff: 50 3 Urine Cocaine Interpretation Positive. 3, 44 Ua Routine 09/15/2016 Ua Specific Phillips 1.010 Ua PH 7 Ua Color yellow Ua Appera clear Ua WBC neg Ua Protein neg Ua Glucose neg Ua Ketones neg Ua Bilirubin neg Ua Urobilinogen 1 Ua Nitrite neg Ua Occult Blood neg Urine Culture And Sensitivities 07/26/2016 Urine Culture SEE RESULT BELOW 45 Laboratory test finding 07/26/2016 Acetaminophen < 15 g/mL 46 Alcohol < 10 mg/dL <10 Salicylate < 2.50 mg/dL <30 TSH (Thyroid Stim Horm) 1.82 mcIU/mL 0.34-5.60 Comp Metabolic Panel 07/26/2016 Sodium 135 mmol/L 133-145 Potassium 3.4 mmol/L Low 3.5-5.0 Chloride 103 mmol/L 101-111 Co2 Carbon Dioxide 26 mmol/L 22-32 Anion Gap 6 mmol/L 2-11 Glucose 115 mg/dL High 70-100 Blood Urea Nitrogen 18 mg/dL 6-24 Creatinine 0.90 mg/dL 0.51-0.95 BUN/Creatinine Ratio 20.0 8-20 Calcium 10.3 mg/dL 8.6-10.3 Total Protein 7.3 g/dL 6.4-8.9 Albumin 4.4 g/dL 3.2-5.2 Globulin 2.9 g/dL 2-4 Albumin/Globulin Ratio 1.5 1-3 Total Bilirubin 0.60 mg/dL 0.2-1.0 Alkaline Phosphatase 46 U/L 34-104 Alt 25 U/L 7-52 Ast 30 U/L 13-39 Egfr Non- 65.0 >60 Egfr 83.6 >60 47 Urine Drug SCR ED 07/26/2016 Amphetamine Ur Screen None Detected None Detect & [facility] Barbiturates Urine Screen None Detected None Detect Benzodiazepine Urine Screen Presumptive Posi <SEE NOTE> None Detect 48 Urine Cannabinoids Screen None Detected None Detect Urine Cocaine Screen Presumptive Posi <SEE NOTE> None Detect 49 Urine Opiates Screen None Detected None Detect Urine Phencyclidine Screen None Detected None Detect 50 Urinalysis Profile 07/26/2016 Urine Color Yellow Urine Appearance Cloudy Urine Specific Phillips 1.021 1.010-1.030 Urine pH 5.0 5-9 Urine Urobilinogen Negative Negative Urine Ketones Trace Negative Urine Protein 1+(30 mg/dL) Negative Urine Leukocytes 3+ Negative Urine Blood Negative Negative * * Negative 51 Urine Nitrite Negative Negative Urine Bilirubin Negative Negative Urine Glucose Negative Negative Urine White Blood Cell 3+(>20/hpf) Absent Urine Red Blood Cell 3+(>10/hpf) Absent Urine Bacteria Absent Absent Urine Squamous Epithelial Cell Present Absent Urine Transitional Epithelial Present Absent CBC Auto Diff 07/26/2016 White Blood Count 7.5 10^3/uL 3.5-10.8 Red Blood Count 5.39 10^6/uL 4.0-5.4 Hemoglobin 15.1 g/dL 12.0-16.0 Hematocrit 45 % 35-47 Mean Corpuscular Volume 84 fL 80-97 Mean Corpuscular Hemoglobin 28 pg 27-31 Mean Corpuscular HGB Conc 34 g/dL 31-36 Red Cell Distribution Width 14 % 10.5-15 Platelet Count 251 10^3/uL 150-450 Mean Platelet Volume 8 um3 7.4-10.4 Abs Neutrophils 5.3 10^3/uL 1.5-7.7 Abs Lymphocytes 1.2 10^3/uL 1.0-4.8 Abs Monocytes 0.7 10^3/uL 0-0.8 Abs Eosinophils 0.2 10^3/uL 0-0.6 Abs Basophils 0.1 10^3/uL 0-0.2 Abs Nucleated RBC 0 10^3/uL Granulocyte % 71.0 % 38-83 Lymphocyte % 15.5 % Low 25-47 Monocyte % 9.5 % High 1-9 Eosinophil % 2.9 % 0-6 Basophil % 1.1 % 0-2 Nucleated Red Blood Cells % 0 Arterial Blood Gas 07/26/2016 PH Arterial 7.37 7.35-7.45 Pco2 Arterial 46 mmHg High 35-45 Po2 Arterial 77 mmHg Low 80-100 O2 Saturation Arterial 96.2 % 95-98 Base Excess Arterial 0.7 -2.0-2.0 52 Hco3 Arterial 25.3 mmol/L 19-31 Urine Cocaine Confirmation 07/06/2016 Urine Cocaine Confirm (GC/MS) TNP ( ) 53, 54 Urine Cocaine Interpretation TNP () 53, 55 Benzodiazepine Confirm Urine 07/06/2016 Urine Nordiazepam GC/MS TNP () 53, 56 Ur Benzodiazepine Interp TNP () 53, 57 Drug Abuse 20 Urine 07/06/2016 Urine Amphetamine Negative ng/mL 53, 58 Urine Barbiturates Negative ng/mL 53, 59 Urine Benzodiazepines Presumptive Posi <SEE NOTE> 53, 60 ng/mL Urine Cocaine Presumptive Posi <SEE NOTE> 53, 61 ng/mL Urine Phencyclidine Negative ng/mL Cutoff: 25 53 Urine Tetrahydrocannabinol Negative ng/mL Cutoff: 50 53, 62 Creatinine 170.2 mg/dL 53 Specific Phillips 1.015 53 pH 6.2 53 Oxidants Negative 53, 63 Adulterants Comment Normal 53 Codeine, Ur Not Detected ng/mL Cutoff: 25 53, 64 Mybvfwp-5-lfnh-glucuronide, Ur Not Detected ng/mL 53, 65 Morphine, Ur Not Detected ng/mL Cutoff: 25 53, 66 Zlfloapl-7-mbeg-glucuronide, U Not Detected ng/mL 53, 67 6-monoacetylmorphine, Ur Not Detected ng/mL Cutoff: 25 53, 68 Hydrocodone, Ur Present ng/mL Cutoff: 25 53, 69 Norhydrocodone, Ur Present ng/mL Cutoff: 25 53, 70 Dihydrocodeine, Ur Present ng/mL Cutoff: 25 53, 71 Hydromorphone, Ur Not Detected ng/mL Cutoff: 25 53, 72 [id number] Not Detected ng/mL 53, 73 Oxycodone, Ur Not Detected ng/mL Cutoff: 25 53, 74 Noroxycodone, Ur Not Detected ng/mL Cutoff: 25 53, 75 Oxymorphone, Ur Not Detected ng/mL Cutoff: 25 53, 76 Skasllkhywq-3-socz-glucuronide Not Detected ng/mL 53, 77 Noroxymorphone, Ur Not Detected ng/mL Cutoff: 25 53, 78 Fentanyl, Ur Not Detected ng/mL Cutoff: 53, 79 Norfentanyl, Ur Not Detected ng/mL Cutoff: 2 53, 80 Meperidine, Ur Not Detected ng/mL Cutoff: 25 53, 81 Normeperidine, Ur Not Detected ng/mL Cutoff: , 82 Naloxone, Ur Not Detected ng/mL Cutoff: , 83 Bbnolbrj-7-tsul-glucuronide, U Not Detected ng/mL 53, 84 Methadone, Ur Not Detected ng/mL Cutoff: 53, 85 Eddp, Ur Not Detected ng/mL Cutoff: , 86 Propoxyphene, Ur Not Detected ng/mL Cutoff: , 87 Norpropoxyphene, Ur Not Detected ng/mL Cutoff: , 88 Tramadol, Ur Not Detected ng/mL Cutoff: , 89 O-desmethyltramadol, Ur Not Detected ng/mL Cutoff: , 90 Tapentadol, Ur Not Detected ng/mL Cutoff: , 91 N-desmethyltapentadol, Ur Not Detected ng/mL Cutoff: 50 53, 92 Kxevohhhxu-omzq-poyqyrqwqmi, U Not Detected ng/mL 53, 93 Buprenorphine, Ur Not Detected ng/mL Cutoff: 5 53, 94 Norbuprenorphine, Ur Not Detected ng/mL Cutoff: 5 53, 95 Norbuprenorphine glucuronide Not Detected ng/mL Cutoff: 20 53, 96 Opioid Interpretation See Comment 53, 97 Urine Culture And 07/06/2016 Urine Culture SEE RESULT BELOW 53, 98 Sensitivities Drug Abuse 20 Urine 07/06/2016 Urine Amphetamine Negative ng/mL 53, 99 Urine Barbiturates Negative ng/mL 53, 100 Urine Benzodiazepines Presumptive Posi <SEE NOTE> 53, 101 ng/mL Urine Cocaine Presumptive Posi <SEE NOTE> 53, 102 ng/mL Urine Phencyclidine Negative ng/mL Cutoff: 25 53 Urine Tetrahydrocannabinol Negative ng/mL Cutoff: 50 53, 103 Creatinine 170.2 mg/dL 53 Specific Phillips 1.015 53 pH 6.2 53 Oxidants Negative 53, 104 Adulterants Comment Normal 53 Codeine, Ur Not Detected ng/mL Cutoff: 25 53, 105 Psweyuo-7-pioc-glucuronide, Ur Not Detected ng/mL 53, 106 Morphine, Ur Not Detected ng/mL Cutoff: 25 53, 107 Delbwgli-6-iusp-glucuronide, U Not Detected ng/mL 53, 108 6-monoacetylmorphine, Ur Not Detected ng/mL Cutoff: 25 53, 109 Hydrocodone, Ur Present ng/mL Cutoff: 25 53, 110 Norhydrocodone, Ur Present ng/mL Cutoff: 25 53, 111 Dihydrocodeine, Ur Present ng/mL Cutoff: 25 53, 112 Hydromorphone, Ur Not Detected ng/mL Cutoff: 25 53, 113 Mwcdjbdwzvmtc7fsmeiiuspzjsrde Not Detected ng/mL 53, 114 Oxycodone, Ur Not Detected ng/mL Cutoff: 25 53, 115 Noroxycodone, Ur Not Detected ng/mL Cutoff: 25 53, 116 Oxymorphone, Ur Not Detected ng/mL Cutoff: 25 53, 117 Ovmczqgmjws-7-sspt-glucuronide Not Detected ng/mL 53, 118 Noroxymorphone, Ur Not Detected ng/mL Cutoff: 25 53, 119 Fentanyl, Ur Not Detected ng/mL Cutoff: 2 53, 120 Norfentanyl, Ur Not Detected ng/mL Cutoff: 2 53, 121 Meperidine, Ur Not Detected ng/mL Cutoff: 25 53, 122 Normeperidine, Ur Not Detected ng/mL Cutoff: 25 53, 123 Naloxone, Ur Not Detected ng/mL Cutoff: 25 53, 124 Ckeukfzj-3-bjod-glucuronide, U Not Detected ng/mL 53, 125 Methadone, Ur Not Detected ng/mL Cutoff: 25 53, 126 Eddp, Ur Not Detected ng/mL Cutoff: 25 53, 127 Propoxyphene, Ur Not Detected ng/mL Cutoff: 25 53, 128 Norpropoxyphene, Ur Not Detected ng/mL Cutoff: 25 53, 129 Tramadol, Ur Not Detected ng/mL Cutoff: 25 53, 130 O-desmethyltramadol, Ur Not Detected ng/mL Cutoff: 25 53, 131 Tapentadol, Ur Not Detected ng/mL Cutoff: 25 53, 132 N-desmethyltapentadol, Ur Not Detected ng/mL Cutoff: 50 53, 133 Qpqdugwnlj-gwgd-dqevkimygtg, U Not Detected ng/mL 53, 134 Buprenorphine, Ur Not Detected ng/mL Cutoff: 5 53, 135 Norbuprenorphine, Ur Not Detected ng/mL Cutoff: 5 53, 136 Norbuprenorphine glucuronide Not Detected ng/mL Cutoff: 20 53, 137 Opioid Interpretation See Comment 53, 138 Urinalysis Profile 07/06/2016 Urine Color Yellow 53 Urine Appearance Cloudy 53 Urine Specific Phillips 1.018 1.010-1.030 53 Urine pH 5.0 5-9 53 Urine Urobilinogen Negative Negative 53 Urine Ketones Negative Negative 53 Urine Protein Negative Negative 53 Urine Leukocytes 1+ Negative 53 Urine Blood Negative Negative 53 * * Negative 53, 139 Urine Nitrite Negative Negative 53 Urine Bilirubin Negative Negative 53 Urine Glucose Negative Negative 53 Urine White Blood Cell 2+(11-20/hpf) Absent 53 Urine Red Blood Cell Trace(0-2/hpf) Absent 53 Urine Bacteria 1+ Absent 53 Urine Squamous Epithelial Cell Present Absent 53 Urine Calcium Oxalate Cryst Present Absent 53 Comp Metabolic Panel 06/10/2016 Sodium 134 mmol/L 133-145 Potassium 4.1 mmol/L 3.5-5.0 Chloride 103 mmol/L 101-111 Co2 Carbon Dioxide 23 mmol/L 22-32 Anion Gap 8 mmol/L 2-11 Glucose 123 mg/dL High 70-100 Blood Urea Nitrogen 10 mg/dL 6-24 Creatinine 1.12 mg/dL High 0.51-0.95 BUN/Creatinine Ratio 8.9 8-20 Calcium 10.2 mg/dL 8.6-10.3 Total Protein 7.4 g/dL 6.4-8.9 Albumin 4.5 g/dL 3.2-5.2 Globulin 2.9 g/dL 2-4 Albumin/Globulin Ratio 1.6 1-3 Total Bilirubin 0.50 mg/dL 0.2-1.0 Alkaline Phosphatase 43 U/L 34-104 Alt 27 U/L 7-52 Ast 36 U/L 13-39 Egfr Non- 50.5 >60 Egfr 65.0 >60 140 Laboratory test finding 06/10/2016 Lactic Acid 0.8 mmol/L 0.5-2.0 141 CBC Auto Diff 06/10/2016 White Blood Count 6.5 10^3/uL 3.5-10.8 Red Blood Count 4.84 10^6/uL 4.0-5.4 Hemoglobin 14.0 g/dL 12.0-16.0 Hematocrit 41 % 35-47 Mean Corpuscular Volume 85 fL 80-97 Mean Corpuscular Hemoglobin 29 pg 27-31 Mean Corpuscular HGB Conc 34 g/dL 31-36 Red Cell Distribution Width 14 % 10.5-15 Platelet Count 279 10^3/uL 150-450 Mean Platelet Volume 9 um3 7.4-10.4 Abs Neutrophils 4.5 10^3/uL 1.5-7.7 Abs Lymphocytes 1.1 10^3/uL 1.0-4.8 Abs Monocytes 0.6 10^3/uL 0-0.8 Abs Eosinophils 0.2 10^3/uL 0-0.6 Abs Basophils 0.1 10^3/uL 0-0.2 Abs Nucleated RBC 0.01 10^3/uL Granulocyte % 68.9 % 38-83 Lymphocyte % 16.6 % Low 25-47 Monocyte % 9.8 % High 1-9 Eosinophil % 3.0 % 0-6 Basophil % 1.7 % 0-2 Nucleated Red Blood Cells % 0.1 Laboratory test finding 06/10/2016 Point of Care Glucose 121 mg/dL High 74 -106 142 Basic Metabolic Panel 05/17/2016 Sodium 136 mmol/L 133-145 143 Potassium 4.6 mmol/L 3.5-5.0 143 Chloride 101 mmol/L 101-111 143 Co2 Carbon Dioxide 29 mmol/L 22-32 143 Anion Gap 6 mmol/L 2-11 143 Glucose 87 mg/dL 70-100 143 Blood Urea Nitrogen 16 mg/dL 6-24 143 Creatinine 1.02 mg/dL High 0.51-0.95 143 BUN/Creatinine Ratio 15.7 8-20 143 Calcium 10.0 mg/dL 8.6-10.3 143 Egfr Non- 56.3 >60 143 Egfr 72.4 >60 143, 144 Laboratory test 05/17/2016 Hemoglobin A1c (Glyco 6.0 % Less than 143, 145 finding HGB) 6.0 Laboratory test 02/08/2016 D Dimer Quantitative < 200 Less Than 146 finding ng/mL 230 CKMB 02/08/2016 CKMB ng/mL 2.5 ng/mL 0.6-6.3 Laboratory test 02/08/2016 Creatine Kinase(CK) 150 U/L 10-223 finding Comp Metabolic 02/08/2016 Sodium 134 mmol/L 133-145 Panel Potassium TNP mmol/L 3.5-5.0 147 Chloride 105 mmol/L 101-111 Co2 Carbon Dioxide 20 mmol/L Low 22-32 Anion Gap TNP mmol/L 2-11 Glucose 97 mg/dL 70-100 Blood Urea Nitrogen 16 mg/dL 6-24 Creatinine 1.27 mg/dL High 0.51-0.95 BUN/Creatinine Ratio 12.6 8-20 Calcium 9.7 mg/dL 8.6-10.3 Total Protein 7.3 g/dL 6.4-8.9 Albumin 4.6 g/dL 3.2-5.2 Globulin 2.7 g/dL 2-4 Albumin/Globulin Ratio 1.7 1-3 Total Bilirubin 0.40 mg/dL 0.2-1.0 Alkaline Phosphatase 43 U/L 34-104 Alt 26 U/L 7-52 Ast TNP U/L 13-39 148 Egfr Non- 43.7 >60 Egfr 56.2 >60 149 Laboratory test finding 02/08/2016 B-Type Natriuretic Peptide BNP 12 pg/mL 150 Troponin-I (TnI) 0.00 ng/mL <0.03 151 CBC Auto Diff 02/08/2016 White Blood Count 8.6 10^3/uL 3.5-10.8 Red Blood Count 4.75 10^6/uL 4.0-5.4 Hemoglobin 13.4 g/dL 12.0-16.0 Hematocrit 41 % 35-47 Mean Corpuscular Volume 86 fL 80-97 Mean Corpuscular Hemoglobin 28 pg 27-31 Mean Corpuscular HGB Conc 33 g/dL 31-36 Red Cell Distribution Width 15 % 10.5-15 Platelet Count 313 10^3/uL 150-450 Mean Platelet Volume 9 um3 7.4-10.4 Abs Neutrophils 5.6 10^3/uL 1.5-7.7 Abs Lymphocytes 1.9 10^3/uL 1.0-4.8 Abs Monocytes 0.8 10^3/uL 0-0.8 Abs Eosinophils 0.3 10^3/uL 0-0.6 Abs Basophils 0.1 10^3/uL 0-0.2 Abs Nucleated RBC 0.02 10^3/uL Granulocyte % 64.4 % 38-83 Lymphocyte % 21.6 % Low 25-47 Monocyte % 9.0 % 1-9 Eosinophil % 4.0 % 0-6 Basophil % 1.0 % 0-2 Nucleated Red Blood Cells % 0.2 Laboratory test finding 02/08/2016 Lactic Acid 0.6 mmol/L 0.5-2.0 152 Hla B27 12/16/2015 Hla B27 Negative 153 Hla B27 Interp See Comment 154 Laboratory test finding 12/16/2015 Lyme Disease Serology Negative Negative 155 Uric Acid 4.5 mg/dL 2.3-6.6 Cyclic Citrullinated Pep Igg <15.6 U 156 Anti Ssa/Ro <0.2 U 157 Anti SSB LA <0.2 U 158 Vitamin B12 > 1450 pg/mL High 180-914 159 TSH (Thyroid Stim Horm) 1.80 ?IU/mL 0.34-5.60 Laboratory test finding 12/02/2015 Hemoglobin A1c 5.8 5-7 Urine Microalbumin Random 11/18/2015 Ur Microalbumin (mg/L) 15.0 mg/L Urine Creatinine 211.56 mg/dL Urine Microalbumin/Creatinine 7.0 ug/mg <31 Urine Culture And 11/18/2015 Urine Culture SEE RESULT BELOW 160 Sensitivities Ua Routine 11/18/2015 Ua Specific Phillips 1.020 Ua PH 5 Ua Color yellow Ua Appera clear Ua WBC trace Ua Protein neg Ua Glucose neg Ua Ketones neg Ua Bilirubin sm Ua Urobilinogen normal Ua Nitrite neg Ua Occult Blood neg Laboratory test 10/22/2015 Surgical Pathology SEE RESULT BELOW 161 finding Pthi 07/10/2015 Calcium (PTH Intact) 10.0 mg/dL 8.6-10.3 PTH Intact 1.3 pmol/L 1.3-9.3 Laboratory test finding 07/10/2015 Rheumatoid Factor <15 IU/mL <15 162 Erythrocyte Sed Rate 12 mm/Hr 0-30 C Reactive Protein 1.63 mg/L < 5.00 163 Amber (Antinuclear Antibodies) Negative Negative Vitamin D Total 25(Oh) 64.4 ng/mL High 30-50 Laboratory test 06/03/2015 Hemoglobin A1c 5.6 5-7 finding Laboratory test 04/19/2015 Urine Culture And SEE RESULT 164 finding Sensitivities BELOW Laboratory test 11/24/2014 Hemoglobin A1c 6.2 % High Less than 165, 166 finding 6.0 Comp Metabolic 11/24/2014 Sodium 135 mmol/L 133-145 165 Panel Potassium 4.4 mmol/L 3.5-5.0 165 Chloride 105 mmol/L 101-111 165 Co2 Carbon Dioxide 25 mmol/L 22-32 165 Anion Gap 5 mmol/L 2-11 165 Glucose 97 mg/dL 70-100 165 Blood Urea Nitrogen 21 mg/dL 6-24 165 Creatinine 0.96 mg/dL High 0.51-0.95 165 BUN/Creatinine Ratio 21.9 High 8-20 165 Calcium 9.8 mg/dL 8.6-10.3 165 Total Protein 6.9 g/dL 6.4-8.9 165 Albumin 4.5 g/dL 3.2-5.2 165 Globulin 2.4 g/dL 2-4 165 Albumin/Globulin Ratio 1.9 1-3 165 Total Bilirubin 0.50 mg/dL 0.2-1.0 165 Alkaline Phosphatase 49 U/L 34-104 165 Alt 23 U/L 7-52 165 Ast 21 U/L 13-39 165 Egfr Non- 60.8 >60 165 Egfr 78.2 >60 165, 167 Lipid Profile (Trig/Chol/HDL) 11/24/2014 Triglycerides 67 mg/dL 165, 168 Cholesterol 136 mg/dL 165, 169 HDL Cholesterol 59.2 mg/dL 165, 170 LDL Cholesterol 63 mg/dL 165, 171 Laboratory test finding 08/19/2014 Follicle Stimulating 102.0 IU/mL 172 Hormone Basic Metabolic Panel 08/19/2014 Sodium 139 mmol/L 133-145 Potassium 4.1 mmol/L 3.5-5.0 Chloride 108 mmol/L 101-111 Co2 Carbon Dioxide 25 mmol/L 22-32 Anion Gap 6 mmol/L 2-11 Glucose 101 mg/dL High 70-100 Blood Urea Nitrogen 16 mg/dL 6-24 Creatinine 0.90 mg/dL 0.51-0.95 BUN/Creatinine Ratio 17.8 8-20 Calcium 9.1 mg/dL 8.6-10.3 Egfr Non- 65.5 >60 Egfr 84.2 >60 173 CBC Auto Diff 08/19/2014 White Blood Count 6.6 10^3/uL 4.8-10.8 Red Blood Count 4.90 10^6/uL 4.0-5.4 Hemoglobin 13.8 g/dL 12.0-16.0 Hematocrit 42 % 35-47 Mean Corpuscular Volume 85 fL 80-97 Mean Corpuscular Hemoglobin 28 pg 27-31 Mean Corpuscular HGB Conc 33 g/dL 31-36 Red Cell Distribution Width 16 % High 10.5-15 Platelet Count 231 10^3/uL 150-450 Mean Platelet Volume 10 um3 7.4-10.4 Abs Neutrophils 4.4 10^3/uL 1.5-7.7 Abs Lymphocytes 1.4 10^3/uL 1.0-4.8 Abs Monocytes 0.6 10^3/uL 0-0.8 Abs Eosinophils 0.2 10^3/uL 0-0.6 Abs Basophils 0.1 10^3/uL 0-0.2 Abs Nucleated RBC 0 10^3/uL Granulocyte % 67.6 % 38-83 Lymphocyte % 20.5 % Low 25-47 Monocyte % 8.4 % 1-9 Eosinophil % 2.4 % 0-6 Basophil % 1.1 % 0-2 Nucleated Red Blood Cells % 0.1 Laboratory test finding 08/19/2014 TSH (Thyroid Stimulating 1.52 IU/mL 0.34-5.60 Horm) Urine Microalbumin Random 06/30/2014 Ur Microalbumin (mg/L) 5.0 mg/L Urine Creatinine 22.89 mg/dL Urine Microalbumin/Creatinine 21.8 Less Than 31 CBC Auto Diff 06/23/2014 White Blood Count 7.4 10^3/uL 4.8-10.8 174 Red Blood Count 5.01 10^6/uL 4.0-5.4 174 Hemoglobin 13.8 g/dL 12.0-16.0 174 Hematocrit 42 % 35-47 174 Mean Corpuscular Volume 83 fL 80-97 174 Mean Corpuscular Hemoglobin 28 pg 27-31 174 Mean Corpuscular HGB Conc 33 g/dL 31-36 174 Red Cell Distribution Width 15 % 10.5-15 174 Platelet Count 207 10^3/uL 150-450 174 Mean Platelet Volume 8 um3 7.4-10.4 174 Abs Neutrophils 4.9 10^3/uL 1.5-7.7 174 Abs Lymphocytes 1.6 10^3/uL 1.0-4.8 174 Abs Monocytes 0.6 10^3/uL 0-0.8 174 Abs Eosinophils 0.2 10^3/uL 0-0.6 174 Abs Basophils 0.1 10^3/uL 0-0.2 174 Abs Nucleated RBC 0 10^3/uL 174 Granulocyte % 66.0 % 38-83 174 Lymphocyte % 21.4 % Low 25-47 174 Monocyte % 8.5 % 1-9 174 Eosinophil % 3.4 % 0-6 174 Basophil % 0.7 % 0-2 174 Nucleated Red Blood Cells % 0.1 174 Comp Metabolic Panel 06/23/2014 Sodium 136 mmol/L 133-145 174 Potassium 4.1 mmol/L 3.7-5.6 174 Chloride 106 mmol/L 101-111 174 Co2 Carbon Dioxide 25 mmol/L 22-32 174 Anion Gap 5 mmol/L 2-11 174 Glucose 107 mg/dL High 70-100 174 Blood Urea Nitrogen 23 mg/dL 6-24 174 Creatinine 1.12 mg/dL High 0.51-0.95 174 BUN/Creatinine Ratio 20.5 High 8-20 174 Calcium 9.4 mg/dL 8.6-10.3 174 Total Protein 7.2 g/dL 6.4-8.9 174 Albumin 4.2 g/dL 3.2-5.2 174 Globulin 3.0 g/dL 2-4 174 Albumin/Globulin Ratio 1.4 1-3 174 Total Bilirubin 0.50 mg/dL 0.2-1.0 174 Alkaline Phosphatase 54 U/L 34-104 174 Alt 28 U/L 7-52 174 Ast 30 U/L 13-39 174 Egfr Non- 50.9 >60 174 Egfr 65.4 >60 174, 175 Iron & Iron Binding Capacity 06/23/2014 Iron 76 g/dL 50-212 174 Unsaturated Iron Binding 470 g/dL 174 Total Iron Binding Capacity 546 g/dL High 250-450 174 % Iron Saturation 14 % Low 15-55 174 Laboratory test finding 06/23/2014 Ferritin < 10.0 ng/mL Low 11-307 174, 176 Vitamin B12 > 1450 pg/mL High 180-914 174, 177 Folate 14.20 ng/mL >3.99 174, 178 TSH (Thyroid Stimulating Horm) 2.46 IU/mL 0.34-5.60 174, 179 Cortisol 7.54 g/dL 174, 180 Hemoglobin A1c 6.4 % High Less than 6.0 174, 181 Vitamin D, 25 Hydroxy 06/23/2014 25-Hydroxy Vitamin D2 <4.0 ng/mL 174 25-Hydroxy Vitamin D3 41 ng/mL 174 25-Hydroxy Vitamin D Total 41 ng/mL 174, 182 Laboratory test finding 06/23/2014 Vitamin B1 Whole 176 nmol/L 70-180 174, 183 Blood Vitamin E Level 11.9 mg/L 5.5 - 17.0 174, 184 Ua Routine 09/26/2013 Ua Specific Phillips 1.005 Ua PH 8 Ua Color yellow Ua Appera cloudy Ua WBC neg Ua Protein neg Ua Glucose neg Ua Ketones neg Ua Bilirubin neg Ua Urobilinogen neg Ua Nitrite neg Ua Occult Blood neg Drug Abuse 20 Urine 07/24/2013 Urine Amphetamine Negative ng/mL 185 Urine Barbiturates Negative ng/mL 186 Urine Benzodiazepines Negative ng/mL 187 Urine Cocaine Negative ng/mL 188 Urine Methadone Negative ng/mL 189 Urine Opiates Negative ng/mL 190 Urine Phencyclidine Negative ng/mL Cutoff: 25 Urine Propoxyphene Negative ng/mL 191 Urine Tetrahydrocannabinol Negative ng/mL Cutoff: 20 192 Creatinine 69.6 mg/dL Specific Phillips 1.012 pH 6.8 Oxidants Negative 193 Urine Opiates Screen Negative 194 Urine Codeine Confirmation Negative ng/mL 195 Urine Hydrocodone Confirm Negative ng/mL 196 Urine Hydromorphone Confirm Negative ng/mL 197 Urine Morphine Confirm Negative ng/mL 198 Urine Oxycodone Confirm Negative ng/mL 199 Urine Opiates Interpretation Negative. 200 Lipid Profile (Trig/Chol/HDL) 06/11/2013 Triglycerides 63 mg/dL 40-200 Cholesterol 193 mg/dL Less than 200 HDL Cholesterol 65 mg/dL High 40-60 201 Cholesterol/HDL Ratio 3.0 Average 1-4.44 LDL Cholesterol 115.4 High Less Than 100 202 Comp Metabolic Panel 06/11/2013 Sodium 134 mmol/L 133-145 Potassium 4.4 mmol/L 3.5-5.0 Chloride 102 mmol/L 101-111 Co2 Carbon Dioxide 24.0 mmol/L 22-32 Anion Gap 8.0 mmol/L 2-11 Glucose 95 mg/dL 70-100 Blood Urea Nitrogen 21 mg/dL 6-24 Creatinine 0.90 mg/dL 0.50-1.40 BUN/Creatinine Ratio 23.3 High 8-20 Calcium 9.5 mg/dL 8.1-9.9 Total Protein 6.4 g/dL 6.2-8.1 Albumin 4.1 g/dL 3.6-5.4 Globulin 2.3 g/dL 2-4 Albumin/Globulin Ratio 1.8 1-3 Total Bilirubin 0.5 mg/dL 0.4-1.5 Alkaline Phosphatase 78 U/L 30-110 Alt 26 U/L 14-54 Ast 26 U/L 12-42 Egfr Non- 65.8 >60 Egfr 84.6 >60 203 Clotest 05/28/2013 Clotest (SEE NOTE) 204 Comp Metabolic Panel 02/01/2013 Sodium 139 mmol/L 133-145 Potassium 4.8 mmol/L 3.5-5.0 Chloride 105 mmol/L 101-111 Co2 Carbon Dioxide 26.0 mmol/L 22-32 Anion Gap 8.0 mmol/L 2-11 Glucose 99 mg/dL 70-100 Blood Urea Nitrogen 21 mg/dL 6-24 Creatinine 1.00 mg/dL 0.50-1.40 BUN/Creatinine Ratio 21.0 High 8-20 Calcium 10.2 mg/dL High 8.1-9.9 Total Protein 7.0 g/dL 6.2-8.1 Albumin 4.2 g/dL 3.6-5.4 Globulin 2.8 g/dL 2-4 Albumin/Globulin Ratio 1.5 1-3 Total Bilirubin 0.6 mg/dL 0.4-1.5 Alkaline Phosphatase 72 U/L 30-110 Alt 25 U/L 14-54 Ast 31 U/L 12-42 Egfr Non- 58.2 >60 Egfr 74.9 >60 205 Urinalysis W/Microscopic 02/01/2013 Urine Color Yellow Urine Appearance Clear Urine Specific Phillips 1.020 1.010-1.030 Urine Esterase 1+ Negative Urine Nitrate Negative Negative Urine Urobilinogen Negative E.U./dL Negative Urine Protein Negative mg/dL Negative Urine pH 6.0 5-9 Urine Blood Negative Negative Urine Ketones Negative mg/dL Negative Urine Bilirubin Negative Negative Urine Glucose Negative mg/dL Negative Urine WBC 1+ (<10 /hpf) None Seen Urine RBC None Seen None Seen Urine Culture And Sensitivities 02/01/2013 Urine Culture (SEE NOTE) 206 Lipid Profile (Trig/Chol/HDL) 12/20/2012 Triglycerides 31 mg/dL Low 40- 200 Cholesterol 178 mg/dL Less than 200 HDL Cholesterol 62 mg/dL High 40-60 207 Cholesterol/HDL Ratio 2.9 Average 1-4.44 LDL Cholesterol 109.8 mg/dL High Less Than 100 208 Comp Metabolic Panel 12/20/2012 Sodium 135 mmol/L 133-145 Potassium 4.7 mmol/L 3.5-5.0 Chloride 101 mmol/L 101-111 Co2 Carbon Dioxide 27.0 mmol/L 22-32 Anion Gap 7.0 mmol/L 2-11 Glucose 93 mg/dL 70-100 Blood Urea Nitrogen 27 mg/dL High 6-24 Creatinine 1.20 mg/dL 0.50-1.40 BUN/Creatinine Ratio 22.5 High 8-20 Calcium 10.2 mg/dL High 8.1-9.9 Total Protein 6.9 g/dL 6.2-8.1 Albumin 4.0 g/dL 3.6-5.4 Globulin 2.9 g/dL 2-4 Albumin/Globulin Ratio 1.4 1-3 Total Bilirubin 0.7 mg/dL 0.4-1.5 Alkaline Phosphatase 70 U/L 30-110 Alt 27 U/L 14-54 Ast 33 U/L 12-42 Egfr Non- 47.4 >60 Egfr 60.9 >60 209 CBC Auto Diff 09/11/2012 White Blood Count 7.7 10^3/uL 4.8-10.8 Red Blood Count 4.91 10^6/uL 4.0-5.4 Hemoglobin 12.9 g/dL 12.0-16.0 Hematocrit 41 % 35-47 Mean Corpuscular Volume 83 fL 80-97 Mean Corpuscular Hemoglobin 26 pg Low 27-31 Mean Corpuscular HGB Conc 32 g/dL 31-36 Red Cell Distribution Width 15 % 10.5-15 Platelet Count 401 10^3/uL 150-450 Mean Platelet Volume 8 um3 7.4-10.4 Abs Neutrophils 5.1 10^3/uL 1.5-7.7 Abs Lymphocytes 1.6 10^3/uL 1.0-4.8 Abs Monocytes 0.8 10^3/uL 0-0.8 Abs Eosinophils 0.1 10^3/uL 0-0.6 Abs Basophils 0.1 10^3/uL 0-0.2 Abs Nucleated RBC 0 10^3/uL Granulocyte % 66.5 % 38-83 Lymphocyte % 20.8 % Low 25-47 Monocyte % 10.6 % High 1-9 Eosinophil % 1.4 % 0-6 Basophil % 0.7 % 0-2 Nucleated Red Blood Cells % 0 Rapid Influenza A B 08/27/2012 Rapid Influenza A B (SEE NOTE) 210 Antigen Antigen Basic Metabolic Panel 08/27/2012 Sodium 135 mmol/L 133-145 Potassium 4.3 mmol/L 3.5-5.0 Chloride 103 mmol/L 101-111 Co2 Carbon Dioxide 25.0 mmol/L 22-32 Anion Gap 7.0 mmol/L 2-11 Glucose 132 mg/dL High 70-100 Blood Urea Nitrogen 13 mg/dL 6-24 Creatinine 0.80 mg/dL 0.50-1.40 BUN/Creatinine Ratio 16.3 8-20 Calcium 9.6 mg/dL 8.1-9.9 Egfr Non- 75.6 >60 Egfr 97.3 >60 211 CBC Auto Diff 08/27/2012 White Blood Count 16.3 10^3/uL High 4.8-10.8 Red Blood Count 4.55 10^6/uL 4.0-5.4 Hemoglobin 12.5 g/dL 12.0-16.0 Hematocrit 38 % 35-47 Mean Corpuscular Volume 84 fL 80-97 Mean Corpuscular Hemoglobin 28 pg 27-31 Mean Corpuscular HGB Conc 33 g/dL 31-36 Red Cell Distribution Width 15 % 10.5-15 Platelet Count 206 10^3/uL 150-450 Mean Platelet Volume 8 um3 7.4-10.4 Abs Neutrophils 13.4 10^3/uL High 1.5-7.7 Abs Lymphocytes 0.9 10^3/uL Low 1.0-4.8 Abs Monocytes 1.8 10^3/uL High 0-0.8 Abs Eosinophils 0.1 10^3/uL 0-0.6 Abs Basophils 0 10^3/uL 0-0.2 Abs Nucleated RBC 0.01 10^3/uL Granulocyte % 82.3 % 38-83 Lymphocyte % 5.4 % Low 25-47 Monocyte % 11.3 % High 1-9 Eosinophil % 0.8 % 0-6 Basophil % 0.2 % 0-2 Nucleated Red Blood Cells % 0 Laboratory test finding 08/07/2012 Lyme Disease Serology Negative Negative 212 Erythrocyte Sed Rate 33 mm/Hr High 0-30 CBC Auto Diff 08/07/2012 White Blood Count 7.2 10^3/uL 4.8-10.8 Red Blood Count 4.47 10^6/uL 4.0-5.4 Hemoglobin 12.5 g/dL 12.0-16.0 Hematocrit 38 % 35-47 Mean Corpuscular Volume 86 fL 80-97 Mean Corpuscular Hemoglobin 28 pg 27-31 Mean Corpuscular HGB Conc 33 g/dL 31-36 Red Cell Distribution Width 15 % 10.5-15 Platelet Count 220 10^3/uL 150-450 Mean Platelet Volume 9 um3 7.4-10.4 Abs Neutrophils 5.3 10^3/uL 1.5-7.7 Abs Lymphocytes 0.9 10^3/uL Low 1.0-4.8 Abs Monocytes 0.7 10^3/uL 0-0.8 Abs Eosinophils 0.3 10^3/uL 0-0.6 Abs Basophils 0.1 10^3/uL 0-0.2 Abs Nucleated RBC 0.01 10^3/uL Granulocyte % 73.7 % 38-83 Lymphocyte % 12.7 % Low 25-47 Monocyte % 9.1 % High 1-9 Eosinophil % 3.8 % 0-6 Basophil % 0.7 % 0-2 Nucleated Red Blood Cells % 0.2 Mumps Igg 06/29/2012 Mumps Virus IgG Antibody Positive 213 Mumps IgG Antibody Index 1.59 0.00-0.89 214 Laboratory test finding 06/29/2012 Rubella IgG Antibody Positive 215 Rubeola (Measles) IgG Antibody Positive 216 Liver Function Panel 03/15/2012 Total Protein 6.0 GM/DL Low 6.2-8.1 Albumin 3.8 GM/DL 3.6-5.4 Globulin 2.2 GM/DL 2-4 Albumin/Globulin Ratio 1.7 1-3 Bilirubin Total 0.8 mg/dL 0.4-1.5 217 Bilirubin Direct 0.1 mg/dL 0.1-0.5 Indirect Bilirubin 0.7 mg/dL 0.3-1.0 218 Alkaline Phosphatase 69 U/L 30-110 Alt (SGPT) 23 U/L 14-54 Ast (Sgot) 40 U/L 12-42 Lipid Profile (Trig/Chol/HDL) 03/15/2012 Triglyceride 198 mg/dL 40-200 Cholesterol 200 mg/dL Less Than 200 219 High Density Lipoprotein 45 mg/dL 40-60 220 Cholesterol/HDL Ratio 4.44 AVERAGE 1-4.44 Low Density Lipoprotein 115 mg/dL High Less Than 100 221 Laboratory test finding 01/25/2012 Glucose 95 mg/dL 70-100 Lipid Profile (Trig/Chol/HDL) 01/25/2012 Triglyceride 260 mg/dL High 40- 200 Cholesterol 236 mg/dL High Less Than 200 222 High Density Lipoprotein 43 mg/dL 40-60 223 Cholesterol/HDL Ratio 5.49 AVERAGE High 1-4.44 Low Density Lipoprotein 141 mg/dL High Less Than 100 224 Vitamin D, 25 Hydroxy 01/25/2012 25-Hydroxy Vitamin D2 <4.0 ng/mL () 25-Hydroxy Vitamin D3 43 ng/mL () 25-Hydroxy Vitamin D Total 43 ng/mL () 225 Yomaira Mosley Comprehensive 11/17/2011 Ebv Vca Igg Positive Negative Ebv Vca Igm Negative Negative Ebna Positive Negative Ebv Interpretation SEE BELOW () 226 Vad 11/17/2011 Vad Final Nonreactive Nonreactive 227 Manual Differential 11/01/2011 Polysegmented 49 % 38-83 Neutrophil Band Neutrophil 4 % 0-8 Lymphocyte 22 % Low 25-47 Monocyte 19 % High 0-13 Basophil 1 % 0-2 Atypical Lymph 5 % 0-6 Absolute Neutrophil Count 0.8 Macrocytosis 1+ Polychromasia 1+ Basophilic Stippling FEW Ovalocytes FEW Manual Diff Comments (SEE NOTE) 228 CBC Auto Diff 11/01/2011 White Blood Count 1.6 CUMM Low 4.8-10.8 Red Cell Count 2.53 CUMM Low 4.2-5.4 Hemoglobin 8.5 g/dL Low 12.0-16.0 Hematocrit 25 % Low 35-47 Mean Corpuscular Volume 100 um3 High 79-97 Mean Corpuscular Hemoglob 34 pg High 27-31 Mean Corpuscular HGB Cone 34 g/dL 32-36 Redcell Distribution WDTH 20 % High 10.5-15 Platelet Count 93 CUMM Low 150-450 Mean Platelet Volume 10.1 um3 7.4-10.4 229 Comp Metabolic Panel 11/01/2011 Sodium 138 mmol/L 135-145 Potassium 4.0 mmol/L 3.5-5.0 Chloride 111 mmol/L 101-111 Co2 (Carbon Dioxide) 22.0 mmol/L 22-32 Anion Gap 5.0 mmol/L 2-11 230 Glucose 107 mg/dL High 70-100 BUN 6 mg/dL 6-24 Creatinine 0.7 mg/dL 0.50-1.40 One Over Creatinine 1.42 BUN/Creatinine Ratio 8.6 8-20 Calcium 7.8 mg/dL Low 8.1-9.9 Total Protein 5.3 GM/DL Low 6.2-8.1 Albumin 3.4 GM/DL Low 3.6-5.4 Globulin 1.9 GM/DL Low 2-4 Albumin/Globulin Ratio 1.8 1-3 Bilirubin Total 0.5 mg/dL 0.4-1.5 231 Alkaline Phosphatase 60 U/L 30-110 Alt (SGPT) 21 U/L 14-54 Ast (Sgot) 34 U/L 12-42 eGFR Non- 88.6 > 60 eGFR 113.9 > 60 232 Vad 07/05/2011 Vad Final NONREACTIVE Nonreactive 233 Lipid Profile (Trig/Chol/HDL) 03/31/2011 Triglyceride 105 mg/dL 40-200 Cholesterol 192 mg/dL Less Than 200 234 High Density Lipoprotein 66 mg/dL High 40-60 235 Cholesterol/HDL Ratio 2.91 AVERAGE 1-4.44 Low Density Lipoprotein 105 mg/dL High Less Than 100 236 Comp Metabolic Panel 03/31/2011 Sodium 135 mmol/L 135-145 Potassium 4.2 mmol/L 3.5-5.0 Chloride 104 mmol/L 101-111 Co2 (Carbon Dioxide) 25.0 mmol/L 22-32 Anion Gap 6.0 mmol/L 2-11 237 Glucose 93 mg/dL 70-100 BUN 12 mg/dL 6-24 Creatinine 0.80 mg/dL 0.50-1.40 One Over Creatinine 1.20 BUN/Creatinine Ratio 15.0 8-20 Calcium 9.1 mg/dL 8.1-9.9 Total Protein 6.9 GM/DL 6.2-8.1 Albumin 3.9 GM/DL 3.6-5.4 Globulin 3.0 GM/DL 2-4 Albumin/Globulin Ratio 1.3 1-3 Bilirubin Total 1.0 mg/dL 0.4-1.5 238 Alkaline Phosphatase 66 U/L 30-110 Alt (SGPT) 38 U/L 14-54 Ast (Sgot) 46 U/L High 12-42 eGFR Non- 75.9 > 60 eGFR 97.6 > 60 239 CBC Auto Diff 03/31/2011 White Blood Count 7.7 CUMM 4.8-10.8 Red Cell Count 4.82 CUMM 4.2-5.4 Hemoglobin 14.2 g/dL 12.0-16.0 Hematocrit 41 % 35-47 Mean Corpuscular Volume 85 um3 79-97 Mean Corpuscular Hemoglob 30 pg 27-31 Mean Corpuscular HGB Cone 35 g/dL 32-36 Redcell Distribution WDTH 14 % 10.5-15 Platelet Count 232 CUMM 150-450 Mean Platelet Volume 9.5 um3 7.4-10.4 Gran % 64.4 % 38-83 Lymph % 23.0 % Low 25-47 Mononuclear % 10.1 % High 1-9 Eosinophil % 1.6 % 0-6 Basophil % 0.9 % 0-2 Abs Lymphs 1.8 1.0-4.8 Abs Mononuclear 0.8 0-0.8 Absolute Neutrophil Count 4.9 1.5-7.7 Abs Eosinophils 0.1 0-0.6 Abs Basophils 0.1 0-0.2 Thyroid Panel 03/31/2011 Free Thyroxine 0.69 ng/dL 0.61-1.24 Thyroxine 7.0 g/dL 5-12 TSH 2.47 MIU/ML 0.34-5.60 1 [facility] Severe Sepsis and Septic Shock Management Bundle Measure requires all lactic acids initially measuring >2.0 mmol/L be repeated. 2 Because ethnic data is not always readily available, this report includes an eGFR for both -Americans and non- Americans. The National Kidney Disease Education Program (NKDEP) does not endorse the use of the MDRD equation for patients that are not between the ages of 18 and 70, are , have extremes of body size, muscle mass, or nutritional status, or are non- or non-. According to the National Kidney Foundation, irrespective of diagnosis, the stage of the disease is based on the level of kidney function: Stage Description GFR(mL/min/1.73 m(2)) 1 Kidney damage with normal or decreased GFR 90 2 Kidney damage with mild decrease in GFR 60-89 3 Moderate decrease in GFR 30-59 4 Severe decrease in GFR 15-29 5 Kidney failure <15 (or dialysis) 3 [id number] REFERENCE VALUE Cutoff: 500 5 REFERENCE VALUE Cutoff: 200 6 REFERENCE VALUE Cutoff: 100 7 Presumptive Positive Drug confirmation to follow. Presumptive Positive means that the screening method is positive, but the test needs to be run by a confirmatory method before being finalized. REFERENCE VALUE Cutoff: 150 8 ADDITIONAL INFORMATION This report is intended for use in clinical monitoring or management of patients. It is not intended for use in employment-related testing. 9 REFERENCE VALUE Cutoff: 200 mg/L 10 Tylenol 3 11 Metabolite of codeine REFERENCE VALUE Cutoff: 100 12 Mimi Whitaker, MS Contin; Also a minor metabolite (10%) of codeine and can be seen in low concentrations (<2,000 ng/mL) with poppy seed ingestion. 13 Metabolite of morphine REFERENCE VALUE Cutoff: 100 14 Metabolite of heroin 15 Lortab, [place], Vicodin; Also a very minor metabolite of codeine and impurity (<1%) of oxycodone. 16 Metabolite of hydrocodone 17 Metabolite of hydrocodone 18 Dilaudid, Exalgo; Also a metabolite of hydrocodone and a minor (<5%) metabolite of morphine. 19 Metabolite of hydromorphone REFERENCE VALUE Cutoff: 100 20 Endocet, Percocet, Oxycontin 21 Metabolite of oxycodone 22 Numorphan, Opana; Also a metabolite of oxycodone. 23 Metabolite of oxymorphone REFERENCE VALUE Cutoff: 100 24 Metabolite of oxymorphone 25 Actiq, Duragesic, [place] 26 Metabolite of fentanyl 27 Demerol 28 Metabolite of meperidine 29 Narcan 30 Metabolite of naloxone REFERENCE VALUE Cutoff: 100 31 Dolophine 32 Metabolite of methadone 33 Darvon, Darvocet 34 Metabolite of propoxyphene 35 Tradol, Ultram, Ultracet 36 Metabolite of tramadol 37 Nucynta 38 Metabolite of tapentadol 39 Metabolite of tapentadol REFERENCE VALUE Cutoff: 100 40 Buprenex, Suboxone 41 Metabolite of buprenorphine 42 Metabolite of buprenorphine 43 No opioids were detected. The absence of expected drug(s) and/or drug metabolite(s) may indicate non-compliance, altered pharmacokinetics, inappropriate timing of specimen collection relative to drug administration, diluted/adulterated urine, or limitations of testing. ADDITIONAL INFORMATION This test was developed and its performance characteristics determined by [facility] in a manner consistent with CLIA requirements. This test has not been cleared or approved by the U.S. Food and Drug Administration. Test Performed by: [facility] [place] [address] Rn Military: Rahat Villalobos II, M.D., Ph.D. 44 ADDITIONAL INFORMATION This report is intended for use in clinical monitoring and management of patients. It is not intended for use in employment-related testing. This test was developed and its performance characteristics determined by [facility] in a manner consistent with CLIA requirements. This test has not been cleared or approved by the U.S. Food and Drug Administration. Test Performed by: [facility] - [address] [address] Rn Military: Rahat Villalobos II, M.D., Ph.D. 45 SEE RESULT BELOW Name: AZUCENA MELLOMahesh Romero : [address]: Jose Mahmood MD Acct: [id number] Unit: [id number] AGE: 56 Location: [facility] 212- Re07/26/16 SEX: F Status: ADM IN SPEC: [id number] BENOIT: 07/26/16-[address]: Nidia BIGGS REQ: [id number] RECD: 07/26/16 STATUS: LEAH BURGESS DR: Charlene Bansal MD _ SOURCE: URINE SPDESC: ORDERED: Urine Culture Procedure Result Reported Site Urine Culture Final 07/27/16- 1313 ML No growth of clinically significant organisms * ML - MAIN LAB ([facility]) . END OF REPORT * ML=Testing performed at Main Lab DEPARTMENT OF PATHOLOGY, [address] [place] [address] Kye Walker M.D. Director [facility] # [id number] 46 Therapeutic concentration: <50 ug/mL Toxic concentration: >120 ug/mL 47 Because ethnic data is not always readily available, this report includes an eGFR for both -Americans and non- Americans. The National Kidney Disease Education Program (NKDEP) does not endorse the use of the MDRD equation for patients that are not between the ages of 18 and 70, are , have extremes of body size, muscle mass, or nutritional status, or are non- or non-. According to the National Kidney Foundation, irrespective of diagnosis, the stage of the disease is based on the level of kidney function: Stage Description GFR(mL/min/1.73 m(2)) 1 Kidney damage with normal or decreased GFR 90 2 Kidney damage with mild decrease in GFR 60-89 3 Moderate decrease in GFR 30-59 4 Severe decrease in GFR 15-29 5 Kidney failure <15 (or dialysis) 48 Presumptive Positive Presumptive positive results are unconfirmed. 49 Presumptive Positive Presumptive positive results are unconfirmed. 50 The urine specimen was tested at the listed cutoffs: Drug class test level (ng/mL) Amphetamines 500 Barbiturates 200 Benzodiazepine metabolites 200 Cocaine metabolites 150 Cannabinoids 50 Opiates 300 Pcp 25 Specimen was received without chain of custody. Results should be used for medical purposes only. 51 *Ascorbic acid is present which may interfere with detection of blood. 52 Reference ranges based on room air. 53 [id number] 54 Cocaine and metabolite Conf, U was cancelled on 08/05/2016 at 09:09; Quantity not sufficient. 55 Cocaine and metabolite Conf, U was cancelled on 08/05/2016 at 09:09; Quantity not sufficient. Test Performed by: [place] [address] Rn Military: Rahat Villalobos II, M.D., Ph.D. 56 Benzodiazepines Confirmation, U was cancelled on 07/20/2016 at 21:23; Quantity is not sufficient to repeat testing. 57 Benzodiazepines Confirmation, U was cancelled on 07/20/2016 at 21:23; Quantity is not sufficient to repeat testing. Test Performed by: [place] [address] Rn Military: Rahat Villalobos II, M.D., Ph.D. 58 REFERENCE VALUE Cutoff: 500 59 REFERENCE VALUE Cutoff: 200 60 Presumptive Positive Drug confirmation to follow. Presumptive Positive means that the screening method is positive, but the test needs to be run by a confirmatory method before being finalized. REFERENCE VALUE Cutoff: 100 61 Presumptive Positive Drug confirmation to follow. Presumptive Positive means that the screening method is positive, but the test needs to be run by a confirmatory method before being finalized. REFERENCE VALUE Cutoff: 150 62 ADDITIONAL INFORMATION This report is intended for use in clinical monitoring or management of patients. It is not intended for use in employment-related testing. 63 REFERENCE VALUE Cutoff: 200 mg/L 64 Tylenol 3 65 Metabolite of codeine REFERENCE VALUE Cutoff: 100 66 Mimi Whitaker, MS Contin; Also a minor metabolite (10%) of codeine and can be seen in low concentrations (<2,000 ng/mL) with poppy seed ingestion. 67 Metabolite of morphine REFERENCE VALUE Cutoff: 100 68 Metabolite of heroin 69 Lortab, [place], Vicodin; Also a very minor metabolite of codeine and impurity (<1%) of oxycodone. 70 Metabolite of hydrocodone 71 Metabolite of hydrocodone 72 Dilaudid, Exalgo; Also a metabolite of hydrocodone and a minor (<5%) metabolite of morphine. 73 Metabolite of hydromorphone REFERENCE VALUE Cutoff: 100 74 Endocet, Percocet, Oxycontin 75 Metabolite of oxycodone 76 Numorphan, Opana; Also a metabolite of oxycodone. 77 Metabolite of oxymorphone REFERENCE VALUE Cutoff: 100 78 Metabolite of oxymorphone 79 Actiq, Duragesic, Fentora 80 Metabolite of fentanyl 81 Demerol 82 Metabolite of meperidine 83 Narcan 84 Metabolite of naloxone REFERENCE VALUE Cutoff: 100 85 Dolophine 86 Metabolite of methadone 87 Darvon, Darvocet 88 Metabolite of propoxyphene 89 Tradol, Ultram, Ultracet 90 Metabolite of tramadol 91 Nucynta 92 Metabolite of tapentadol 93 Metabolite of tapentadol REFERENCE VALUE Cutoff: 100 94 Buprenex, Suboxone 95 Metabolite of buprenorphine 96 Metabolite of buprenorphine 97 Test detected the presence of hydrocodone and its metabolites (norhydrocodone and dihydrocodeine). Suspect use of hydrocodone within the past three days. ADDITIONAL INFORMATION This test was developed and its performance characteristics determined by [facility] in a manner consistent with CLIA requirements. This test has not been cleared or approved by the U.S. Food and Drug Administration. PDF Report available at: [email or web address] Test Performed by: [place] [address] Rn Military: Rahat Villalobos II, M.D., Ph.D. 98 SEE RESULT BELOW Name: VIRI MELLO : [address]: Charlene Salgado MD Acct: [id number] Unit: [id number] AGE: 56 Location: [facility] Re07/06/16 SEX: F Status: REG REF SPEC: [id number] BENOIT: 07/06/[address]: Charlene Salgado MD REQ: [id number] RECD: 07/06/16 STATUS: COMP _ SOURCE: URINE SPDESC: ORDERED: Urine Culture Procedure Result Reported Site Urine Culture Final 07/07/16- 1634 ML No Growth (<1,000 CFU/mL) * ML - [facility] ([facility]) . END OF REPORT * ML=Testing performed at Main Lab DEPARTMENT OF PATHOLOGY, [address] [place] [address] Kye Walker M.D. Director [facility] # [id number] 99 REFERENCE VALUE Cutoff: 500 100 REFERENCE VALUE Cutoff: 200 101 Presumptive Positive Drug confirmation to follow. Presumptive Positive means that the screening method is positive, but the test needs to be run by a confirmatory method before being finalized. REFERENCE VALUE Cutoff: 100 102 Presumptive Positive Drug confirmation to follow. Presumptive Positive means that the screening method is positive, but the test needs to be run by a confirmatory method before being finalized. REFERENCE VALUE Cutoff: 150 103 ADDITIONAL INFORMATION This report is intended for use in clinical monitoring or management of patients. It is not intended for use in employment-related testing. 104 REFERENCE VALUE Cutoff: 200 mg/L 105 Tylenol 3 106 Metabolite of codeine REFERENCE VALUE Cutoff: 100 107 Mimi Whitaker, MS Contin; Also a minor metabolite (10%) of codeine and can be seen in low concentrations (<2,000 ng/mL) with poppy seed ingestion. 108 Metabolite of morphine REFERENCE VALUE Cutoff: 100 109 Metabolite of heroin 110 Lortab, [place], Vicodin; Also a very minor metabolite of codeine and impurity (<1%) of oxycodone. 111 Metabolite of hydrocodone 112 Metabolite of hydrocodone 113 Dilaudid, Exalgo; Also a metabolite of hydrocodone and a minor (<5%) metabolite of morphine. 114 Metabolite of hydromorphone REFERENCE VALUE Cutoff: 100 115 Endocet, Percocet, Oxycontin 116 Metabolite of oxycodone 117 Numorphan, Opana; Also a metabolite of oxycodone. 118 Metabolite of oxymorphone REFERENCE VALUE Cutoff: 100 119 Metabolite of oxymorphone 120 Actiq, Duragesic, Fentora 121 Metabolite of fentanyl 122 Demerol 123 Metabolite of meperidine 124 Narcan 125 Metabolite of naloxone REFERENCE VALUE Cutoff: 100 126 Dolophine 127 Metabolite of methadone 128 Darvon, Darvocet 129 Metabolite of propoxyphene 130 Tradol, Ultram, Ultracet 131 Metabolite of tramadol 132 Nucynta 133 Metabolite of tapentadol 134 Metabolite of tapentadol REFERENCE VALUE Cutoff: 100 135 Buprenex, Suboxone 136 Metabolite of buprenorphine 137 Metabolite of buprenorphine 138 Test detected the presence of hydrocodone and its metabolites (norhydrocodone and dihydrocodeine). Suspect use of hydrocodone within the past three days. ADDITIONAL INFORMATION This test was developed and its performance characteristics determined by [facility] in a manner consistent with CLIA requirements. This test has not been cleared or approved by the U.S. Food and Drug Administration. PDF Report available at: [email or web address] Test Performed by: [place] [address] Rn Military: Rahat Villalobos II, M.D., Ph.D. 139 *Ascorbic acid is present which may interfere with detection of blood. 140 Because ethnic data is not always readily available, this report includes an eGFR for both -Americans and non- Americans. The National Kidney Disease Education Program (NKDEP) does not endorse the use of the MDRD equation for patients that are not between the ages of 18 and 70, are , have extremes of body size, muscle mass, or nutritional status, or are non- or non-. According to the National Kidney Foundation, irrespective of diagnosis, the stage of the disease is based on the level of kidney function: Stage Description GFR(mL/min/1.73 m(2)) 1 Kidney damage with normal or decreased GFR 90 2 Kidney damage with mild decrease in GFR 60-89 3 Moderate decrease in GFR 30-59 4 Severe decrease in GFR 15-29 5 Kidney failure <15 (or dialysis) 141 [facility] Severe Sepsis and Septic Shock Management Bundle Measure requires all lactic acids initially measuring >2.0 mmol/L be repeated. 142 Senior Customer Service Representative: [id number] CORNELL 143 FASTING 10 HOUR 144 Because ethnic data is not always readily available, this report includes an eGFR for both -Americans and non- Americans. The National Kidney Disease Education Program (NKDEP) does not endorse the use of the MDRD equation for patients that are not between the ages of 18 and 70, are , have extremes of body size, muscle mass, or nutritional status, or are non- or non-. According to the National Kidney Foundation, irrespective of diagnosis, the stage of the disease is based on the level of kidney function: Stage Description GFR(mL/min/1.73 m(2)) 1 Kidney damage with normal or decreased GFR 90 2 Kidney damage with mild decrease in GFR 60-89 3 Moderate decrease in GFR 30-59 4 Severe decrease in GFR 15-29 5 Kidney failure <15 (or dialysis) 145 Therapeutic target for the treatment of diabetes Mellitus patients is <7% HBA1C, and in selective patients <6.0%.Please refer to [place] [employer] Diabetic care guidelines for further information. 146 Please note: The following may produce a false positive D Dimer test: - Rheumatoid factor greater than 60 IU/ml - Plasma hemoglobin greater than 0.05 gm/dl - Bilirubin greater than 50 mg/dl - Lipids greater than 1000 mg/dl - FDP greater than 20 ug/ml 147 Unable to report test result due to hemolysis. 148 Unable to report test result due to hemolysis. 149 Because ethnic data is not always readily available, this report includes an eGFR for both -Americans and non- Americans. The National Kidney Disease Education Program (NKDEP) does not endorse the use of the MDRD equation for patients that are not between the ages of 18 and 70, are , have extremes of body size, muscle mass, or nutritional status, or are non- or non-. According to the National Kidney Foundation, irrespective of diagnosis, the stage of the disease is based on the level of kidney function: Stage Description GFR(mL/min/1.73 m(2)) 1 Kidney damage with normal or decreased GFR 90 2 Kidney damage with mild decrease in GFR 60-89 3 Moderate decrease in GFR 30-59 4 Severe decrease in GFR 15-29 5 Kidney failure <15 (or dialysis) 150 >100 to <200 pg/mL: likely compensated congestive heart failure (CHF) 200 to 400 pg/mL: likely moderate CHF >400 pg/mL: likely moderate to severe CHF 151 Reference Range and Interpretation: TnI (ng/mL) Interpretation Less Than 0.03 ng/mL Not supportive of diagnosis of WI 0.03 - 0.50 ng/mL Indeterminate: suggest serial studies if clinically indicated. Greater than 0.5 ng/mL Consistent with diagnosis of [place] 152 Specimen hemolyzed. Result may not be valid. [facility] Severe Sepsis and Septic Shock Management Bundle Measure requires all lactic acids initially measuring >2.0 mmol/L be repeated. 153 REFERENCE VALUE Not Applicable 154 RESULT: HLA-B27 antigen was not detected. ADDITIONAL INFORMATION Method: Flow Cytometry Performing Laboratory CLIA# [id number] Test Performed by: [place] [address] Rn Military: Rahat Villalobos II, M.D., Ph.D. 155 Serologic response to B. burgdorferi infection is not detected, but cannot rule out early infection during which low or undetectable antibody levels to B. burgdorferi may be present. If clinically indicated, a new serum specimen should be submitted in 7-14 days. Test Performed by: [place] [address] Rn Military: Rahat Villalobos II, M.D., Ph.D. 156 REFERENCE VALUE <20.0 (Negative) Test Performed by: [place] [address] Rn Military: Rahat Villalobos II, M.D., Ph.D. 157 REFERENCE VALUE <1.0 (Negative) Test Performed by: [place] [address] Rn Military: Rahat Villalobos II, M.D., Ph.D. 158 REFERENCE VALUE <1.0 (Negative) Test Performed by: [place] [address] Rn Military: Rahat Villalobos II, M.D., Ph.D. 159 Normal Range 180 to 914 Indeterminate Range 145 to 180 Deficient Range <145 160 SEE RESULT BELOW Name: VIRI MELLO Nick : [address]: Charlene Salgado MD Acct: [id number] Unit: [id number] AGE: 55 Location: [facility] Re11/18/15 SEX: F Status: REG REF SPEC: [id number] BENOIT: 11/18/15-[address]: Charlene Salgado MD REQ: [id number] RECD: 11/18/15 STATUS: COMP _ SOURCE: URINE SPDESC: ORDERED: Urine Culture Procedure Result Reported Site Urine Culture Final 11/19/15- 1642 ML No growth of clinically significant organisms * ML - MAIN LAB (PSC1) . END OF REPORT * ML=Testing performed at Main Lab DEPARTMENT OF PATHOLOGY, [address] [place] [address] Kye Walker M.D. Director [facility] # [id number] 161 SEE RESULT BELOW Name: DAVEVIRI : [address]: Deniz Vyas MD Acct: [id number] Unit: [id number] AGE: 55 Location: ENDO Re10/22/15 SEX: F Status: REG REF SPEC: [id number] BENOIT: 10/22/15-1228 [facility] [address]: Deniz Vyas MD REQ: [id number] RECD: 10/22/157767 STATUS: ROSIBEL BURGESS DR: Charlene Salgado MD _ ORDERED: LEVEL IV FINAL DIAGNOSIS Colon, at 20 cm, biopsy: -- Hyperplastic polyp. CLINICAL HISTORY Changes in bowel habit, gastroesophageal reflux disease. POST-OPERATIVE DIAGNOSIS Colonoscopy to cecum, very good prep - no colitis, no tic, removed 1 x .1 mm polyp at 20 cm, otherwise negative colonoscopy. Body of esophagus - normal; gastroesophageal junction - normal, slight hiatal hernia; stomach - normal, pylorus - normal; duodenum - villous mucosa bulb + 2nd portion. Colon polyp; non-erosive gastroesophageal reflux disease without change 05/28/13, negative CLOtest. GROSS DESCRIPTION The specimen is received in formalin labeled, Biopsy Colon Polyp at 20 cm, and consists of a 0.4 x 0.3 x 0.2 cm mccracken-pink irregular soft tissue fragment, which is submitted entirely in one cassette. Signed (signature on file) Hannah Long MD 1129 END OF REPORT * ML=Testing performed at Main Lab DEPARTMENT OF PATHOLOGY, [address] [place] [address] Kye Walker M.D. Director [facility] # [id number] 162 Test Performed by: [facility] [place] [address] Rn Military: Rahat Villalobos II, M.D., Ph.D. 163 Acute inflammation: >10.00 164 SEE RESULT BELOW Name: VIRI MELLO : [address]: Keith Cosby MD Acct: [id number] Unit: [id number] AGE: 55 Location: [facility] Re04/19/15 SEX: F Status: DEP ER SPEC: [id number] BENOIT: 04/19/15-1407 [facility] DR: Carl Calixto MD REQ: [id number] RECD: 04/20/15 STATUS: LEAH BURGESS DR: Jenn [facility] Charlene Salgado MD _ SOURCE: URINE SPDESC: ORDERED: Urine Culture Procedure Result Verified Site Urine Culture Final 04/22/15- 1040 ML No Growth Day 2 (<1,000 CFU/mL) * ML - MAIN LAB (PSC1) . END OF REPORT * ML=Testing performed at Main Lab DEPARTMENT OF PATHOLOGY, [address] [place] [address] Kye Walker M.D. Director [facility] # [id number] 165 FASTING 12 HOUR 166 Therapeutic target for the treatment of diabetes Mellitus patients is <7% HBA1C, and in selective patients <6.0%.Please refer to [place] [employer] Diabetic care guidelines for further information. 167 Because ethnic data is not always readily available, this report includes an eGFR for both -Americans and non- Americans. The National Kidney Disease Education Program (NKDEP) does not endorse the use of the MDRD equation for patients that are not between the ages of 18 and 70, are , have extremes of body size, muscle mass, or nutritional status, or are non- or non-. According to the National Kidney Foundation, irrespective of diagnosis, the stage of the disease is based on the level of kidney function: Stage Description GFR(mL/min/1.73 m(2)) 1 Kidney damage with normal or decreased GFR 90 2 Kidney damage with mild decrease in GFR 60-89 3 Moderate decrease in GFR 30-59 4 Severe decrease in GFR 15-29 5 Kidney failure <15 (or dialysis) 168 Desirable <150 Borderline high 150-199 High 200-499 Very High >500 169 Desirable <200 Borderline high 200-239 High >239 170 Low <40 Desirable: 40-60 High: >60 171 Desirable: <100 mg/dL Near Optimal: 100-129 mg/dL Borderline High: 130-159 mg/dL High: 160-189 mg/dL Very High: >189 mg/dL 172 Normally menstruating females - Follicular phase 3 - 9 - Mid-cycle peak 4 - 23 - Luteal phase 1 - 6 Postmenopausal females 16 - 114 173 Because ethnic data is not always readily available, this report includes an eGFR for both -Americans and non- Americans. The National Kidney Disease Education Program (NKDEP) does not endorse the use of the MDRD equation for patients that are not between the ages of 18 and 70, are , have extremes of body size, muscle mass, or nutritional status, or are non- or non-. According to the National Kidney Foundation, irrespective of diagnosis, the stage of the disease is based on the level of kidney function: Stage Description GFR(mL/min/1.73 m(2)) 1 Kidney damage with normal or decreased GFR 90 2 Kidney damage with mild decrease in GFR 60-89 3 Moderate decrease in GFR 30-59 4 Severe decrease in GFR 15-29 5 Kidney failure <15 (or dialysis) 174 PT IS FASTING 175 Because ethnic data is not always readily available, this report includes an eGFR for both -Americans and non- Americans. The National Kidney Disease Education Program (NKDEP) does not endorse the use of the MDRD equation for patients that are not between the ages of 18 and 70, are , have extremes of body size, muscle mass, or nutritional status, or are non- or non-. According to the National Kidney Foundation, irrespective of diagnosis, the stage of the disease is based on the level of kidney function: Stage Description GFR(mL/min/1.73 m(2)) 1 Kidney damage with normal or decreased GFR 90 2 Kidney damage with mild decrease in GFR 60-89 3 Moderate decrease in GFR 30-59 4 Severe decrease in GFR 15-29 5 Kidney failure <15 (or dialysis) 176 PT IS FASTING 177 Normal Range 180 to 914 Indeterminate Range 145 to 180 Deficient Range <145 178 PT IS FASTING 179 PT IS FASTING 180 AM 8.7-22.4 PM <10 181 Therapeutic target for the treatment of diabetes Mellitus patients is <7% HBA1C, and in selective patients <6.0%.Please refer to [place] [employer] Diabetic care guidelines for further information. 182 REFERENCE VALUE 25-HYDROXY D TOTAL (D2+D3) Optimum levels in the healthy population are 20-50, patients with bone disease may benefit from higher levels within this range. Test Performed by: [place] [address] Rn Military: Wm Bettencourt M.D. 183 Test Performed by: [place] [address] Rn Military: Mari Carbajal, Ph.D. 184 Test Performed by: [place] [address] Rn Military: Mari Carbajal, Ph.D. 185 -- REFERENCE VALUE -- Cutoff: 500 186 -- REFERENCE VALUE -- Cutoff: 200 187 -- REFERENCE VALUE -- Cutoff: 200 188 -- REFERENCE VALUE -- Cutoff: 150 189 -- REFERENCE VALUE -- Cutoff: 300 190 -- REFERENCE VALUE -- Cutoff: 300 191 -- REFERENCE VALUE -- Cutoff: 300 192 This report is intended for use in clinical monitoring or management of patients. It is not intended for use in employment-related testing. 193 Test Performed by: [place] [address] Rn Military: Vikas Reinoso III, M.D. 194 -- REFERENCE VALUE -- Cutoff: 300 195 -- REFERENCE VALUE -- Cutoff: 100 196 -- REFERENCE VALUE -- Cutoff: 100 197 -- REFERENCE VALUE -- Cutoff: 100 198 -- REFERENCE VALUE -- Cutoff: 100 199 -- REFERENCE VALUE -- Cutoff: 100 200 This report is intended for use in clinical monitoring and management of patients. It is not intended for use in employment-related testing. Test Performed by: [place] [address] Rn Military: Vikas Reinoso III, M.D. 201 HDL Interpretation: Undesirable: High Risk: Less than 40 mg/dL Desirable: Low Risk: Greater than 60 mg/dL 202 LDL Interpretation: Low Risk Optimal Level: LDL Less than 100 mg/dL Near or Above Optimal: LDL 100-129 mg/dL Borderline High Risk: LDL 130-159 mg/dL High Risk: LDL 160-189 mg/dL Very High Risk: LDL Greater than 189 mg/dL 203 Because ethnic data is not always readily available, this report includes an eGFR for both -Americans and non- Americans. The National Kidney Disease Education Program (NKDEP) does not endorse the use of the MDRD equation for patients that are not between the ages of 18 and 70, are , have extremes of body size, muscle mass, or nutritional status, or are non- or non-. According to the National Kidney Foundation, irrespective of diagnosis, the stage of the disease is based on the level of kidney function: Stage Description GFR(mL/min/1.73 m(2)) 1 Kidney damage with normal or decreased GFR 90 2 Kidney damage with mild decrease in GFR 60-89 3 Moderate decrease in GFR 30-59 4 Severe decrease in GFR 15-29 5 Kidney failure <15 (or dialysis) 204 RUN DATE: 05/29/13 [facility] LAB LIVE PAGE 1 RUN TIME: [address] [place] [address] Specimen Inquiry Name: VIRI MELLO : [address]: Deniz Vyas MD Acct: [id number] Unit: [id number] AGE: 53 Location: ENDO Re05/28/13 SEX: F Status: REG REF SPEC: [id number] BENOIT: 05/28/13-[address]: Deniz Vyas MD REQ: [id number] RECD: 05/28/13-1256 STATUS: LEAH BURGESS DR: Charlene Salgado MD _ SOURCE: [facility]: ORDERED: Clotest Procedure Result Verified Site Clotest Final 05/29/13- 0755 ML Clotest Negative END OF REPORT * ML=Testing performed at Main Lab DEPARTMENT OF PATHOLOGY, [address] [place] [address] Kye Walker M.D. Director [facility] Permit #[id number] 205 Because ethnic data is not always readily available, this report includes an eGFR for both -Americans and non- Americans. The National Kidney Disease Education Program (NKDEP) does not endorse the use of the MDRD equation for patients that are not between the ages of 18 and 70, are , have extremes of body size, muscle mass, or nutritional status, or are non- or non-. According to the National Kidney Foundation, irrespective of diagnosis, the stage of the disease is based on the level of kidney function: Stage Description GFR(mL/min/1.73 m(2)) 1 Kidney damage with normal or decreased GFR 90 2 Kidney damage with mild decrease in GFR 60-89 3 Moderate decrease in GFR 30-59 4 Severe decrease in GFR 15-29 5 Kidney failure <15 (or dialysis) 206 RUN DATE: 02/03/13 [facility] LAB LIVE PAGE 1 RUN TIME: [address] [place] [address] Specimen Inquiry Name: VIRI MELLO : [address]: Charlene Salgado MD Acct: [id number] Unit: [id number] AGE: 53 Location: [facility] Re02/01/13 SEX: F Status: REG REF SPEC: [id number] BENOIT: 02/01/13-[address]: Charlene Salgado MD REQ: [id number] RECD: 02/01/13 STATUS: COMP _ SOURCE: URINE SPDESC: ORDERED: Urine Culture QUERIES: [employer] Number [id number] Procedure Result Verified Site Urine Culture Final 02/03/13- 0947 ML No Growth Day 2 (<1,000 CFU/mL) END OF REPORT * ML=Testing performed at Main Lab DEPARTMENT OF PATHOLOGY, [address] [place] [address] Kye Walker M.D. Director [facility] Permit #[id number] 207 HDL Interpretation: Undesirable: High Risk: Less than 40 MG/DL Desirable: Low Risk: Greater than 60 MG/DL 208 LDL Interpretation: Low Risk Optimal Level: LDL Less than 100 MG/DL Near or Above Optimal: LDL 100-129 MG/DL Borderline High Risk: LDL 130-159 MG/DL High Risk: LDL 160-189 MG/DL Very High Risk: LDL Greater than 189 MG/DL 209 Because ethnic data is not always readily available, this report includes an eGFR for both -Americans and non- Americans. The National Kidney Disease Education Program (NKDEP) does not endorse the use of the MDRD equation for patients that are not between the ages of 18 and 70, are , have extremes of body size, muscle mass, or nutritional status, or are non- or non-. According to the National Kidney Foundation, irrespective of diagnosis, the stage of the disease is based on the level of kidney function: Stage Description GFR(mL/min/1.73 m(2)) 1 Kidney damage with normal or decreased GFR 90 2 Kidney damage with mild decrease in GFR 60-89 3 Moderate decrease in GFR 30-59 4 Severe decrease in GFR 15-29 5 Kidney failure <15 (or dialysis) 210 RUN DATE: 08/27/12 [facility] LIVE PAGE 1 RUN TIME: [address] [place] [address] Specimen Inquiry Name: VIRI MELLO : [address]: Marilee Rod MD Acct: [id number] Unit: [id number] AGE: 52 Location: ED Re08/27/12 SEX: F Status: REG ER SPEC: [id number] BENOIT: 08/27/12 [facility] DR: Marilee Price MD REQ: [id number] RECD: 08/27/12 STATUS: LEAH BURGESS DR: Naomi [facility] _ SOURCE: [facility]: ORDERED: Rapid Flu A B Procedure Result Verified Site Rapid Influenza A B Antigen Final 08/27/12- 1156 ML Influenza A Antigen Negative by Enzyme Immunoassay Influenza B Antigen Negative by Enzyme Immunoassay END OF REPORT * ML=Testing performed at Main Lab DEPARTMENT OF PATHOLOGY, [address] [place] [address] Kye Walker M.D. Director [facility] Permit #[id number] 211 Because ethnic data is not always readily available, this report includes an eGFR for both -Americans and non- Americans. The National Kidney Disease Education Program (NKDEP) does not endorse the use of the MDRD equation for patients that are not between the ages of 18 and 70, are , have extremes of body size, muscle mass, or nutritional status, or are non- or non-. According to the National Kidney Foundation, irrespective of diagnosis, the stage of the disease is based on the level of kidney function: Stage Description GFR(mL/min/1.73 m(2)) 1 Kidney damage with normal or decreased GFR 90 2 Kidney damage with mild decrease in GFR 60-89 3 Moderate decrease in GFR 30-59 4 Severe decrease in GFR 15-29 5 Kidney failure <15 (or dialysis) 212 Serologic response to B. burgdorferi infection is not detected, but cannot rule out early infection during which low or undetectable antibody levels to B. burgdorferi may be present. If clinically indicated, a new serum specimen should be submitted in 7-14 days. Test Performed by: [place] [address] Rn Military: Vikas Reinoso III, M.D. 213 Results suggest response to immunization or prior exposure to the virus. -- REFERENCE VALUE -- Negative R 214 Test Performed by: [place] [address] Rn Military: Vikas Reinoso III, M.D. R 215 -- REFERENCE VALUE -- Negative Test Performed by: [place] [address] Rn Military: Vikas Reinoso III, M.D. R 216 -- REFERENCE VALUE -- Negative Test Performed by: [place] [address] Rn Military: Vikas Reinoso III, M.D. R 217 A metabolite of Naproxen, O-desmethylnaproxen, has been shown to interfere with the [place]-Samuel method for measuring total bilirubin. Samples from patients who have taken Naproxen have shown spurious elevation in total bilirubin levels. 218 Please note updated reference range, effective 03/25/10 219 CHOLESTEROL INTERPRETATION: Desirable: Less than 200 MG/DL Borderline-High Risk: 200-239 MG/DL High-Risk: 240 MG/DL and over 220 HDL INTERPRETATION: Undesirable: High Risk: Less than 40 MG/DL Desirable: Low Risk: Greater than 60 MG/DL 221 LDL INTERPRETATION: Low Risk Optimal Level: LDL Less than 100 MG/DL Near or Above Optimal: LDL 100-129 MG/DL Borderline High Risk: LDL 130-159 MG/DL High Risk: LDL 160-189 MG/DL Very High Risk: LDL Greater than 189 MG/DL 222 CHOLESTEROL INTERPRETATION: Desirable: Less than 200 MG/DL Borderline-High Risk: 200-239 MG/DL High-Risk: 240 MG/DL and over 223 HDL INTERPRETATION: Undesirable: High Risk: Less than 40 MG/DL Desirable: Low Risk: Greater than 60 MG/DL 224 LDL INTERPRETATION: Low Risk Optimal Level: LDL Less than 100 MG/DL Near or Above Optimal: LDL 100-129 MG/DL Borderline High Risk: LDL 130-159 MG/DL High Risk: LDL 160-189 MG/DL Very High Risk: LDL Greater than 189 MG/DL 225 -- REFERENCE VALUE -- 25-HYDROXY D TOTAL (D2+D3) Optimum levels in the normal population are 25-80 Test Performed by: [facility] Dpt of Lab Med and Pathology [address] [place] [address] Rn Military: Vikas Reinoso III, M.D. 226 RESULT: Results suggest past infection. In most populations, at least 90% of the adult population will have been infected with EBV sometime in the past and therefore, will be positive for anti-VCA/IgG and anti- EBNA. Antibodies to EBNA develop 6-8 weeks after primary infection and remain present for life. Presence of VCA/ IgM antibodies indicates recent primary infection with EBV. Test Performed by: [facility] Dpt of Lab Med and Pathology [address] [place] [address] Rn Military: Vikas Reinoso III, M.D. 227 It is recognized that currently available assays for the detection of antibodies to HIV-1 and/or HIV-2 may not detect all infected individuals. HIV antibodies may be undetectable in some stages of the infection and in some clinical conditions. The performance of this assay has not been established for populations of infants or children. Assayed by Chemiluminescence Microparticle Immunoassay on the Greg Advia Centaur CP. Values obtained with different methods or kits cannot be used interchangeably.The diagnostic specificity of the ADVIA Centaur 1/O/2 Enhanced assay in the low risk population was 99.90% (6052/6058) with a 95% confidence interval of 99.78 to 99.96%. 228 CBC AND SMEAR REVIEWED. PANCYTOPENIA NOTED. REVIEWED BY KYE WALKER MD 229 Lymphopenia % Monocytosis % 2+ Anisocytosis Pancytopenia 230 Anion gap measurement may be of limited value in the presence of any alkalosis, especially in a combined acid base disorder. . 231 A metabolite of Naproxen, O-desmethylnaproxen, has been shown to interfere with the [place] method for measuring total bilirubin. Samples from patients who have taken Naproxen have shown spurious elevation in total bilirubin levels. 232 Because ethnic data is not always readily available, this report includes an eGFR for both -Americans and non- Americans. The National Kidney Disease Education Program (NKDEP) does not endorse the use of the MDRD equation for patients that are not between the ages of 18 and 70, are , have extremes of body size, muscle mass, or nutritional status, or are non- or non-. According to the National Kidney Foundation, irrespective of diagnosis, the stage of the disease is based on the level of kidney function: Stage Description GFR(mL/min/1.73 m(2)) 1 Kidney damage with normal or decreased GFR 90 2 Kidney damage with mild decrease in GFR 60-89 3 Moderate decrease in GFR 30-59 4 Severe decrease in GFR 15-29 5 Kidney failure <15 (or dialysis) 233 FINAL INTERPRETATION: No HIV antibody is detected. . This information has been disclosed to you from confidential records which are protected by [place] State law. State law prohibits you from making further disclosure of this information without the specific written consent of the person to whom it pertains, or as otherwise permitted by law. Any unauthorized further disclosure in violation of state law may result in a fine or mcc sentence or both. General authorization for the release of medical or other information is not, except in limited circumstances set forth in Part 63, Title 10, of [facility], sufficient authorization for further disclosure. Disclosure of confidential HIV information that occurs as the result of a general authorization for the release of medical or other information will be in violation of the state law and may result in a fine or a mcc sentence. . 234 CHOLESTEROL INTERPRETATION: Desirable: Less than 200 MG/DL Borderline-High Risk: 200-239 MG/DL High-Risk: 240 MG/DL and over 235 HDL INTERPRETATION: Undesirable: High Risk: Less than 40 MG/DL Desirable: Low Risk: Greater than 60 MG/DL 236 LDL INTERPRETATION: Low Risk Optimal Level: LDL Less than 100 MG/DL Near or Above Optimal: LDL 100-129 MG/DL Borderline High Risk: LDL 130-159 MG/DL High Risk: LDL 160-189 MG/DL Very High Risk: LDL Greater than 189 MG/DL 237 Anion gap measurement may be of limited value in the presence of any alkalosis, especially in a combined acid base disorder. . 238 A metabolite of Naproxen, O-desmethylnaproxen, has been shown to interfere with the [place] method for measuring total bilirubin. Samples from patients who have taken Naproxen have shown spurious elevation in total bilirubin levels. 239 Because ethnic data is not always readily available, this report includes an eGFR for both -Americans and non- Americans. The National Kidney Disease Education Program (NKDEP) does not endorse the use of the MDRD equation for patients that are not between the ages of 18 and 70, are , have extremes of body size, muscle mass, or nutritional status, or are non- or non-. According to the National Kidney Foundation, irrespective of diagnosis, the stage of the disease is based on the level of kidney function: Stage Description GFR(mL/min/1.73 m(2)) 1 Kidney damage with normal or decreased GFR 90 2 Kidney damage with mild decrease in GFR 60-89 3 Moderate decrease in GFR 30-59 4 Severe decrease in GFR 15-29 5 Kidney failure <15 (or dialysis) Procedures Date CPT Code Description Status 10/26/201610398 Inject Tendon Sheath Or Ligament Aponeurosis Eg Plantar Completed Fascia 03/04/201697692 Injection Single Tendon Origin/Insertion Completed 02/08/2016 87687 Pulmonary Stress Test Simple Completed 12/17/2015 Mammogram Completed 10/22/2015 Colonoscopy Completed 07/10/2015 Bone Mineral Density Test Completed 09/11/2014 13926 Diffusing Capacity Completed 09/11/2014 00107 Plethysmography Determination Lung Volumes & Per Completed Airway Resist 09/11/2014 30226 Pulmonary Stress Test Simple Completed 09/11/2014 05102 Pulmonary Function><Bronchodil Completed 08/08/2014 Mammogram Completed 07/09/2014 Diabetic Retinal Eye Exam Completed 06/10/2014 03540 Screening Vision Test Completed 05/06/201497779 Injection Single Tendon Origin/Insertion Completed 05/06/201426643 Inject Tendon Sheath Or Ligament Aponeurosis Eg Plantar Completed Fascia 01/13/2014 94900 Short Arm Splint Application Completed 01/13/2014 97386 Inject Tendon Sheath Or Ligament Aponeurosis Eg Plantar Completed Fascia 12/30/2013 37710 Short Arm Cast Application Completed 12/18/2013 00719 Short Arm Cast Application Completed 12/06/2013 21464 Repair Of Collateral Ligament Metacarpophalangeal Or Completed Interphl JT 12/06/2013 22169 Repair Of Collateral Ligament Metacarpophalangeal Or Completed Interphl JT 11/27/2013 98934 Short Arm Cast Application Completed 10/30/2013 90420 Short Arm Cast Application Completed 10/30/2013 42009 Short Arm Cast Application Completed 10/16/2013 90511 Short Arm Cast Application Completed 10/03/2013 25288 Short Arm Cast Application Completed 09/25/2013 84646 Rad Exam; Hand Limited Completed 09/25/2013 71868 Short Arm Cast Application Completed 07/02/2013 81945 Trigger Finger Release Incision / Tendon Sheath Completed Incision 07/02/2013 65571 Trigger Finger Release Incision / Tendon Sheath Completed Incision 05/29/2013 72969 Inject Tendon Sheath Or Ligament Aponeurosis Eg Plantar Completed Fascia 05/08/201373310 Injection, Carpal Tunnel Completed 04/17/2013 Mammogram Completed 03/28/2013 89071 Carpal Tunnel Release Completed 03/28/2013 28947 Carpal Tunnel Release Completed 02/14/2013 56366 Carpal Tunnel Release Completed 02/14/201389545 Carpal Tunnel Release Completed 12/26/201203662 Injection, Carpal Tunnel Completed 12/26/2012 26769 Rad Exam; Hand Comp Completed 12/26/2012 67680 Rad Exam; Hand Comp Completed 03/20/2012 24629 Polysomnography Sleep Staging 4+ Parameters W/Cpap Completed 12/28/2011 Mammogram Completed 05/17/2011 Colonoscopy Completed 03/30/2011 13771 ECHO Stress Test Incl Perf Contiuous ekg Monitoring Completed W/Phys Superv 03/15/2011 88192 EKG Tracing & Interpretation Completed Encounters Type Date Location Provider CPT E/M Dx Office Visit 05/26/2017 3:00p [facility] Dawn Yañez N.P. 37466 J44.9 - [place] J20.9 J02.9 M54.5 Office Visit 04/04/2017 3:15p Pul[place] [address] J44.9 Services [facility] G47.33 J98.4 Office Visit 01/24/2017 2:15p Pulmonology And Sleep Susi Albarado MD G9695 J44.9 Services Of [facility] G47.33 J98.4 F14.90 Office Visit 10/26/2016 2:30p Orthopedic Services Deanna Alvarado 50794 M65.4 Of Jamal Holman Office Visit 10/25/2016 11:00a [place] [address] M79.642 Of Jamal M77.11 Office Visit 09/15/2016 11:50a [facility] Charlene Salgado M.D. 96947 F41.1 - Lu F14.10 R30.0 J44.9 Office Visit 07/06/2016 12:10p [facility] - Charlene Salgado M.D. 59456 R21 Lu R19.5 R39.9 F14.10 Office Visit 06/20/2016 4:00p [facility] Giuseppe Fontanez 23139 R21 - Lu Holman Office Visit 06/03/2016 1:30p [place] [address] M77.11 Jamal Office Visit 05/25/2016 2:00p [facility] Charlene Salgado 03839 R73.01 - Lu Holman Z23 M51.36 Office Visit 05/19/2016 11:45a Pul[place] [address] J44.9 Services Of [facility] G47.33 J98.4 Office Visit 04/28/2016 3:30p Pulmonology [place] [address] J44.9 [facility] G47.33 Z12.2 Office Visit 04/13/2016 12:10p [facility] Charlene Salgado M.D. 99161 M79.7 - [place] M51.36 M77.11 R79.89 F41.9 Office Visit 04/06/2016 9:20a Rheumatology Services Clayton Hebert 17295 S80.212A Of Kaila Holman M77.11 M79.7 M54.5 Office Visit 03/04/2016 10:20a [facility] Enoc Andrade, 04885 J20.9 - Lexie Holman Office Visit 03/04/2016 11:00[place] [address] M77.11 Of C.M.AVonnie M25.521 Office Visit 02/11/2016 1:00p [facility] Charlene Salgado M.D. 78628 J44.9 - Lexie S29.011D E27.8 Office Visit 02/08/2016 2:30p Pulmonology [place] [address] R07.89 [facility] J44.9 G47.33 Office Visit 01/06/2016 2:20p Rheumatology Services Of Clayton Hebert 52253 R20.8 Kaila Holman M79.7 M17.0 M19.041 M19.042 Office Visit 12/16/2015 3:00p Rheumatology Services Of Clayton Hebert 71139 M06.4 Kaila Holman M19.041 M19.042 M35.01 R20.8 Office Visit 12/02/2015 2:20p [facility] Charlene Salgado 78672 R73.01 - Lexie Holman Office Visit 11/26/2015 11:30a Orth[place] [address] M19.041 C.M.A. M19.042 Office Visit 11/18/2015 10:50a [facility] Charlene Salgado 00910 M51.36 - Lexie Holman J44.9 G47.33 R30.0 N30.90 Office Visit 10/09/2015 10:00a Pulmonology [place] [address] J44.9 [facility] G47.33 E66.09 Office Visit 08/03/2015 3:30p [facility] [place] [address] H10.011 [place] Office Visit 06/17/2015 1:30p Orth[place] [address] M67.431 C.M.A. M19.041 Office Visit 06/03/2015 2:10p [facility] Charlene Salgado M.D. 46767 E11.9 - [place] V04.81 Z23 V03.1 Office Visit 03/25/2015 8:45a Pul[place] [address] 496 [facility] 327.23 278.00 518.83 Office Visit 12/01/2014 10:50a [facility] Charlene Salgado 64447 250.00 - Lexie Holman 272.2 518.83 724.2 Office Visit 10/01/2014 3:30p Pulmonology [place] [address] 496 [facility] 327.23 278.00 518.83 Office Visit 09/16/2014 10:50a [facility] Charlene Salgado M.D. 19179 627.9 - [place] Office Visit 08/15/2014 10:00a [facility] [place] [address] 627.9 - [place] 780.79 784.0 627.2 Office Visit 06/30/2014 11:50a [facility] Charlene Salgado 80034 250.00 - Lexie Holman 079.89 790.6 Office Visit 06/25/2014 11:00a Pul[place]ology [place] [address] 496 [facility] 327.23 799.02 786.05 Office Visit 06/10/2014 10:30a [facility] Charlene Salgado M.D. 78292 729.4 - [place] 722.93 V04.81 496 278.00 Office Visit 05/06/2014 11:30a Orthopedic Services Desire Armas, 38261 841.1 Of Jamal Holman 727.04 Office Visit 04/25/2014 2:30p [facility] [place] - René [place] [address] 729.4 [place] Office Visit 03/31/2014 10:30a Orthopedic Services Of Stephania Rangel, 04983 841.1 Jamal ESPAÑA 727.04 Office Visit 12/02/2013 2:10p [facility] Charlene Salgado 76220 V72.83 - [place] M.Cheyanne 278.00 V16.49 V76.43 Office Visit 11/13/2013 10:45a Orthopedic Services Desire Armas, 92538 841.1 Of Jamal Holman Office Visit 10/25/2013 11:40a [facility] Dawn Pari, N.PVonnie 65644 461.9 Medicine - [place] 386.11 Office Visit 10/16/2013 10:45a Orthopedic Services Desire Armas, 52547 841.1 Of Jamal Holman 727.04 Office Visit 10/16/2013 1:20p [facility] - Giuseppe Fontanez, 68214 466.0 [place] M.Cheyanne Office Visit 09/26/2013 2:30p [facility] - Charlene Salgado, 44149 788.1 [place] M.DVonnie Office Visit 08/05/2013 1:50p [facility] Charlene Salgado, 59249 465.9 [place] M.DVonnie Office Visit 07/24/2013 10:30a [facility] Charlene Salgado, 92573 722.52 [place] M.DVonnie Office Visit 06/27/2013 11:00a Neurosurgery Services Keith Freedman, 37290 722.52 Of Kaila Black.Cheyanne Office Visit 06/24/2013 11:50a [facility] Charlene Salgado, 62500 722.93 Lexie Holman 272.2 586 Office Visit 06/10/2013 11:50a [facility] Charlene Salgado M.D. 39560 724.2 - [place] 272.2 586 783.1 275.42 V04.81 Office Visit 05/29/2013 10:30a Orthopedic Services Desire Armas 88039 354.0 Of Jamal Holman 727.03 Office Visit 03/19/2013 10:00a Orthopedic Services Desire Armas 86971 354.0 Of Jamal Holman 238.0 782.2 Office Visit 01/23/2013 9:45a Orthopedic Services Desire Armas, 73418 354.0 Of CKeagan Holman Office Visit 12/26/2012 9:30a Orthopedic Services Desire Armas, 72137 354.0 Of CKeagan Holman Office Visit 12/19/2012 2:10p [facility] Charlene Salgado M.D. 66445 496 Medicine - [place] 799.02 327.23 272.2 Office Visit 11/12/2012 2:10p [facility] Charlene Salgado M.D. 22010 724.2 - [place] 327.23 278.00 Office Visit 10/19/2012 2:00p [facility] Yari Fang N.PVonnie 92755 486 - [place] Office Visit 10/17/2012 2:00p Orthopedic Services Of Nelson Gautam M.D. 10294 354.2 C.M.AVonnie Office Visit 09/11/2012 11:50a [facility] Charlene Salgado M.D. 13009 481 - [place] 496 288.60 v06.1 Office Visit 08/30/2012 2:13p [facility], 44010 481 Hospitalists N.P. 799.02 492.8 311 Office Visit 08/29/2012 2:12p [facility], Adrien [place], 84683 481 Hospitalists N.P. 799.02 492.8 311 Office Visit 08/27/2012 2:11p [facility], Nelson Palacios, 64691 481 Hospitalists N.P. 799.02 492.8 311 Office Visit 08/27/2012 9:40a [facility] Zohreh Granger, 79120 786.30 - Lexie Holman Office Visit 08/22/2012 2:45p Orthopedic Services Nelson Gautam M.D. 24032 726.71 Of C.M.A. Office Visit 08/14/2012 9:50a [facility] Charlene Salgado M.D. 75955 726.71 - [place] 692.9 272.2 Office Visit 08/07/2012 9:50a [facility] Charlene Salgado 77754 719.07 - [place] MFarideh Office Visit 06/29/2012 11:40a [facility] Nano Casanova M.D. 53530 V70.0 - [place] 401.9 846.1 300.02 571.40 V74.1 Office Visit 06/19/2012 11:00a [facility] Nano Casanova M.D. 42711 709.8 - [place] 691.8 Office Visit 06/14/2012 11:30a [facility] Yari Fang, N.P. 42206 373.2 - [place] 401.9 Office Visit 06/07/2012 10:40a [facility] Nano Casanova M.D. 48653 V04.81 - [place] V03.82 846.1 300.02 Office Visit 03/16/2012 11:20a [facility] Nano Casanova M.D. 09997 272.9 - [place] Office Visit 02/02/2012 1:00p [facility] Nano Casanova M.D. 17373 571.40 - [place] 272.9 564.00 Office Visit 12/29/2011 2:00p [facility] Nano Casanova M.D. 24255 V70.0 - [place] 571.40 327.23 278.00 401.9 496 V17.49 Office Visit 12/22/2011 1:45p [facility] Yari Fang, N.P. 11683 466.0 - [place] V76.10 Office Visit 11/04/2011 10:00a [facility] Nano Casanova M.D. 13236 571.40 - [place] 785.6 Office Visit 11/01/2011 1:00p [facility] Enoc Andrade 43918 782.3 Medicine - Lexie Holman Office Visit 09/29/2011 10:20a [facility] Nano Casanova M.D. 38276 327.23 Medicine - [place] 706.2 278.00 Office Visit 07/05/2011 2:20p DO Not Use [facility] Nano Casanova M.D. 55396 401.9 [place] 784.7 V65.44 Office Visit 06/20/2011 10:40a DO Not Use [facility] Nano Casanova M.D. 64065 300.02 [facility] 496 571.40 401.9 Office Visit 05/24/2011 11:00a DO Not Use [facility] Dino Lew, 29619 491.21 [place],FACP V15.82 496 V04.81 Office Visit 03/31/2011 3:40p DO Not Use [facility] Nano Casanova M.D. 00507 786.50 [facility] 496 477.8 Office Visit 03/15/2011 11:00a DO Not Use [facility] Nano Casanova M.D. 54406 786.50 [facility] 496 278.00 300.02 112.9 Plan of Care Future Appointment(s):09/05/2017 4:00 pm - Clayton Hebert M.D. at [facility]09/25/2017 11:30 am - Susi Albarado MD at [facility]ology [facility]10/05/2017 1:00 pm - Charlene Salgado M.D. at [facility] - Wrdtygejv02/05/2017 - Clayton Hebert M.D.M79.1 MyalgiaNew Medication: Lidoderm 5 %M54.5 Low back painM51.36 Other intervertebral disc degeneration, lumbar regionReferral:Pain Clinic, Pain/Clinic/CTRR20.8 Other disturbances of skin sensationFollow up:Follow up in 3 to 4 weeks or sooner if needed
[2017-08-24] MEDS ORDERED: amLODIPine TAB* 5 MG PO ONE (16:29)
[2017-08-24 16:48] VITALS: BP 170/82
--- NOTE | 2017-08-24 17:57 | ED ---
Leon Hodges Gabriel, scribed for Aguilar Jimenez MD on 08/24/17 at 1629 . Hypertension - HPI Summary HPI Summary: This patient is a 57 year old F presenting to [facility] with a chief complaint of elevated BP since CERTIFIED ART THERAPIST. Patient saw Dr. Mckeon for a shot of Bupivacaine in her lumbar area for nerve lock. There he noticed she had elevated BP, that with her history of cocaine abuse and HTN he suggested she come to the ED. Patient denies abd pain, BRO, CP, vision changes, and neurological symptoms. She also reports she is unsure if she took her HTN medication today. - History of Current Complaint Chief Complaint: EDHypertension Stated Complaint: HIGH BLOOD PRESSURE Time Seen by Provider: 08/24/17 15:54 Hx Obtained From: Patient Onset/Duration: Started Hours Ago - CERTIFIED ART THERAPIST, Still Present Timing: Constant Reported Blood Pressure Prior To Arrival: 176/87 currently Associated Signs & Symptoms: Negative - CP, vision changes - Allergies/Home Medications Allergies/Adverse Reactions: Allergies Allergy/AdvReac Type Severity Reaction Status Date / Time Penicillins Allergy Severe SWELLING/IT Verified 08/24/17 14:06 ROSA MARIA PMH/Surg Hx/FS Hx/Imm Hx Previously Healthy: No Endocrine/Hematology History: Reports: Hx Diabetes - type 2, Hx Thyroid Disease Cardiovascular History: Reports: Hx Auto Implanted Cardiovert Defib, Hx Hypercholesterolemia, Hx Hypertension - ON MEDICATION/ HIGH TRIGLYCERIDE, Other Cardiovascular Problems/Disorders - cholesterol control with me Denies: Hx Pacemaker/ICD Respiratory History: Reports: Hx Chronic Obstructive Pulmonary Disease (COPD), Hx Pneumonia, Hx Sleep Apnea - current CPAP user, Other Respiratory Problems/ Disorders - COPD recent visit to ER last week taken prednisone and antibiotis Denies: Hx Asthma GI History: Reports: Hx Gastroesophageal Reflux Disease Denies: Hx Ulcer History: Reports: Other Problems/Disorders - Dysuria Musculoskeletal History: Reports: Hx Arthritis - LOWER BACK, Other Musculoskeletal History - Bilateral carpel tunnel and left trigger thumb Denies: Hx Osteoporosis Sensory History: Reports: Hx Contacts or Glasses - Eyeglasses Denies: Hx Hearing Aid Opthamlomology History: Reports: Hx Contacts or Glasses - Eyeglasses Neurological History: Reports: Other Neuro Impairments/Disorders - DEPRESSION AND ANXIETY. PAIN CLINIC PT Psychiatric History: Reports: Hx Anxiety, Hx Depression, Hx Post Traumatic Stress Disorder, Hx Inpatient Treatment - drug and etoh rehab, Hx of Violent Episodes Against Others - Recovering Cocaine Addict Denies: Hx Panic Disorder Comment Only: Hx Eating Disorder - unknown - Cancer History Hx Chemotherapy: No Hx Radiation Therapy: No - Surgical History Surgery Procedure, Year, and Place: 02/2012 LEFT WRIST CARPAL TUNNEL RELEASE, [facility]. 03/28/13 - Rt WRIST CARPAL TUNNEL RELEASE -. 06/16 LEFT TRIGGER THUMB RELEASE Hx Anesthesia Reactions: No Infectious Disease History: Yes Infectious Disease History: Reports: Hx Hepatitis - Hx of Hep C treated, not current Denies: Hx Human Immunodeficiency Virus (HIV), History Other Infectious Disease, Traveled Outside the [place] in Last 30 Days - Family History Known Family History: Positive: Cardiac Disease, Hypertension, Diabetes - Social History Alcohol Use: None Hx Substance Use: Yes Substance Use Type: Reports: None Substance Use Comment - Amount & Last Used: tramadol Hx Tobacco Use: No Smoking Status (MU): Former Smoker Type: Cigarettes Amount Used/How Often: 1.5 PPD Length of Time of Smoking/Using Tobacco: 33 YEARS Have You Smoked in the Last Year: No Review of Systems Negative: Blurred Vision Positive: Other - HTN . Negative: Chest Pain Negative: Abdominal Pain Neurological: Negative - neurological symptoms Negative: Headache All Other Systems Reviewed And Are Negative: Yes Physical Exam - Summary Physical Exam Summary: Appearance: Well appearing, no pain distress Skin: warm, dry, reflects adequate perfusion Head/face: normal Eyes: EOMI, CALVIN ENT: normal Neck: supple, non-tender Respiratory: CTA, breath sounds present Cardiovascular: RRR, pulses symmetrical Abdomen: non-tender, soft Bowel: present Musculoskeletal: normal, strength/ROM intact Neuro: normal, sensory motor intact, A&Ox Triage Information Reviewed: Yes Vital Signs On Initial Exam: Initial Vitals Temp Pulse Resp BP Pulse Ox 97.2 F 78 16 176/87 98 08/24/17 15:45 08/24/17 15:45 08/24/17 15:45 08/24/17 15:45 08/24/17 15:45 Vital Signs Reviewed: Yes Diagnostics - Vital Signs Vital Signs Temp Pulse Resp BP Pulse Ox 08/24/17 15:45 97.2 F 78 16 176/87 98 - Laboratory Lab Statement: Any lab studies that have been ordered have been reviewed, and results considered in the medical decision making process. - EKG 1616 Cardiac Rate: NL EKG Rhythm: Sinus Rhythm - at [address] Segment: Normal EKG Interpretation: normal axis, normal interval Hypertension Course/Dx - Course Course Of Treatment: pt asymptomatic, no evidence for end organ dysfunction. ECG normal. Hx of sympathomimetic abuse. Possibly didnt take her BP med today. Norvasc here. F/U in am with PMD for BP check. - Diagnoses Differential Diagnosis/HQI PQRI: Drug Ingestion, Hypertension, Hypertensive Crisis, Hypertensive Urgency Provider Diagnoses: Uncontrolled hypertension Discharge - Discharge Plan Condition: Improved Disposition: HOME Patient Education Materials: Hypertension (ED) Referrals: Charlene Salgado MD [Primary Care Provider] - Additional Instructions: Avoid sodium in the diet. Ensure you take your blood pressure medication. Return with chest pain, severe headache, worse or other concerns as discussed. Call your doctor in the morning for blood pressure recheck. Do not use street drugs. The documentation as recorded by the Leon peterson Gabriel accurately reflects the service I personally performed and the decisions made by me, Aguilar Jimenez MD.
== END 2017-08-24 16:47 | disposition home or self-care (01) ==
LOC: ED 15:41
DX: I10 Essential (primary) hypertension (principal); K21.9 Gastro-esophageal reflux disease without esophagitis; F32.9 Major depressive disorder, single episode, unspecified; F41.9 Anxiety disorder, unspecified; F43.10 Post-traumatic stress disorder, unspecified; Z87.891 Personal history of nicotine dependence
CPT/HCPCS: 93005; 99282; A9270-GY